=== PATIENT | male | born 1945 | race Hispanic/Latino ===

== ENCOUNTER 2017-06-13 06:08 | Day surgery (SDC) | payer BC, MEDICARE ==
[2017-06-12 09:00] VITALS: BMI 28.5
[2017-06-13 07:16] VITALS: RESP 18; O2SAT 98
[2017-06-13] MEDS ORDERED: methylPREDNISolone Depo 80 mg/ml Inj ONE (11:47)
[2017-06-13] MEDS ORDERED: Midazolam 2 MG/2 ML VIAL ONE (11:47)
[2017-06-13] MEDS ORDERED: Lidocaine 1% Inj (20ml) ONE (11:48)
[2017-06-13] MEDS ORDERED: Bupivacaine 0.5% Inj(30mL) ONE (11:48)
[2017-06-13] MEDS ORDERED: Iohexol 300 10 ML ONE (11:48)
[2017-06-13] MEDS ORDERED: methylPREDNISolone Depo 80 mg/ml Inj IM ONE (11:55)
[2017-06-13] MEDS ORDERED: Bupivacaine HCl 0.5% PF (30 ml) Inj IJ ONE (11:55)
[2017-06-13] MEDS ORDERED: Lidocaine 1% Inj (20ml) IJ ONE (11:55)
[2017-06-13] MEDS ORDERED: Lactated Ringer's 1,000 ML IV ONE (11:55)
[2017-06-13] MEDS ORDERED: Bupivacaine HCl 0.5% PF (10 ml) Inj ONE (11:56)
[2017-06-13 12:44] VITALS: BP 128/79; PULSE 63; TEMP 98
--- NOTE | 2017-06-13 16:12 | RAD ---
PROCEDURE: Lumbar epidural steroid injection HISTORY: PAIN MANAGEMENT COMPARISON: None TECHNIQUE: Standard protocol for this study/examination. FINDINGS: Total fluoroscopic time (continuous mode) utilized during the procedure: 22.1 seconds. Total exam DLP: (mGy): 6.72. Submitted images from the current procedure: 3.0 IMPRESSION: Less than 1 hr fluoroscopic time utilized during performance of the procedure.
--- NOTE | 2017-06-14 13:14 | OP ---
PROCEDURE DATE: 06/13/2017 PREOPERATIVE DIAGNOSES: Lumbar spondylosis and herniated disk. POSTOPERATIVE DIAGNOSES: Lumbar spondylosis and herniated disk. PROCEDURE: Bilateral L3, L4, L5 medial branch nerve block. SURGEON: Ramana Bowens MD CO-SURGEON: Dr. Calvo. PHYSICIAN TIME STUDY TECHNOLOGIST: AZAM Dobbnis. David Garrido stayed throughout the case from the beginning to the end. DESCRIPTION OF PROCEDURE: The patient was brought to the operating room, placed in a prone position. Back of the lumbar area thoroughly prepped and draped in the same sterile manner. Later by using the point of entry for L3, L4, L5, the area of placement of the needle has been planned and lidocaine with epinephrine has been given to this area. Spinal needles have been placed under fluoroscopy guided control at L3, L4, L5 bilaterally. Once position is confirmed, aspiration has been achieved, no CSF noted. After this, Marcaine mixed with Depo-Medrol injected into the median nerve branch area at L3, L4, L5 bilaterally and it has been done under fluoroscopic guided control. After this, needles have been removed, sterile dressings have been applied. The patient tolerated the procedure and then mobilized to recovery room in stable condition. Ramana Bowens MD
== END 2017-06-13 13:15 | disposition hospice, home (50) ==
LOC: H.OPSURG 06:08
PROVIDERS: ATTEND Neurological Surgery
DX: M51.26 Other intervertebral disc displacement, lumbar region (principal); E78.5 Hyperlipidemia, unspecified; I10 Essential (primary) hypertension; E03.9 Hypothyroidism, unspecified; M47.816 Spondylosis without myelopathy or radiculopathy, lumbar region
CPT/HCPCS: 64520; J1040; J2250; J3010; J7120

== ENCOUNTER 2017-08-08 06:26 | Inpatient (IN) | payer MEDICARE ==
[2017-06-12 09:00] VITALS: BMI 28.5
[2017-08-08] MEDS ORDERED: Propofol 10 mg/ml Inj (20 ML) ONE ×2 (07:06→07:44)
[2017-08-08] MEDS ORDERED: Succinylcholine 200 mg/10 ml Inj IV ONE (07:07)
[2017-08-08] MEDS ORDERED: Lidocaine 4% (Laryng-O-Jet) Kit MM ONE ×2 (07:07→07:44)
[2017-08-08] MEDS ORDERED: Lidocaine 1% 5ml Abboject IV ONE (07:07)
[2017-08-08] MEDS ORDERED: Midazolam 2 MG/2 ML VIAL ONE ×2 (07:07→07:44)
--- NOTE | 2017-08-08 07:09 | CP.PCM.CON ---
History of Present Illness - History of Present Illness History of Present Illness: Neurosurgery consult as per Dr. Bowens 71M complains of low back pain, failed conservative mgmt, previously had injection in 06/2017 with relief x 1.5 days, presents with continued low back pain and elected for surgery. He [id number] he used to have pain into his left leg , but not at this time. PMH: hypertension hypothyroid PSH: Rt shoulder, left knee, kidney stones, ear surgery Medical clearance on chart, reviewed Review of Systems - Review of Systems All systems: reviewed and no additional remarkable complaints except - Constitutional Additional comments: no recent illness - Musculoskeletal Musculoskeletal: As Per HPI - Integumentary Integumentary: As Per HPI - Neurological Neurological: As Per HPI - Hematologic/Lymphatic Hematologic: absent: As Per HPI, Easy Bleeding, Easy Bruising, Lymphadenopathy, Other Past Patient History - Past Medical History & Family History Past Medical History?: Yes Past Family History: Reviewed and not pertinent - Past Social History Smoking Status: Former Smoker - CARDIAC Hx Cardiac Disorders: Yes Hx Hypercholesterolemia: Yes Hx Hypertension: Yes - PULMONARY Hx Respiratory Disorders: No - NEUROLOGICAL Hx Neurological Disorder: No - HEENT Hx HEENT Problems: Yes - RENAL Hx Chronic Kidney Disease: Yes Hx Kidney Stones: Yes - ENDOCRINE/METABOLIC Hx Endocrine Disorders: Yes Hx Hypothyroidism: Yes - HEMATOLOGICAL/ONCOLOGICAL Hx Blood Disorders: No - INTEGUMENTARY Hx Dermatological Problems: No - MUSCULOSKELETAL/RHEUMATOLOGICAL Hx Musculoskeletal Disorders: Yes Hx Arthritis: Yes Hx Back Pain: Yes - GASTROINTESTINAL Hx Gastrointestinal Disorders: Yes Hx Gastritis: Yes - GENITOURINARY/GYNECOLOGICAL Hx Genitourinary Disorders: No - PSYCHIATRIC Hx Emotional Abuse: No Hx Physical Abuse: No - SURGICAL HISTORY Hx Surgeries: Yes Hx Arthroscopy: Yes (right knee) Hx Herniorrhaphy: Yes (right inguinal) Hx Tonsillectomy: Yes Other/Comment: RIGHT SHOULDER ROTATOR CUFF REPAIR. SURGERY FOR KIDNEY STONES - ANESTHESIA Hx Anesthesia: Yes Hx Anesthesia Reactions: No Hx Malignant Hyperthermia: No Meds Allergies/Adverse Reactions: Allergies Allergy/AdvReac Type Severity Reaction Status Date / Time No Known Allergies Allergy Verified 06/13/17 07:26 Physical Exam - Constitutional Appears: Well, No Acute Distress - Head Exam Head Exam: ATRAUMATIC - Neck Exam Neck exam: Positive for: Full Rom, Normal Inspection - Respiratory Exam Respiratory Exam: NORMAL BREATHING PATTERN - Cardiovascular Exam Cardiovascular Exam: REGULAR RHYTHM - GI/Abdominal Exam GI & Abdominal Exam: Normal Bowel Sounds - Back Exam Back exam: muscle spasm, tenderness, vertebral tenderness - Neurological Exam Neurological exam: Alert, Oriented x3 - Expanded Neurological Exam Expanded Sensory exam: Lower Extremity Light Touch: Normal Neuro motor strength exam: Left Lower Extremity: 5 (DF/PF/great toe ext, knee flex/ext/hip flex), Right Lower Extremity: 5 - Psychiatric Exam Psychiatric exam: Normal Affect, Normal Mood - Skin Skin Exam: Dry, Intact, Normal Color, Warm Assessment & Plan (1) Lumbar spondylosis Assessment and Plan: NPO d/w Dr. Bowens who reviewed patient imaging risks/benefits/alt explained to patient who verbalized understanding and elects for surgery plan for L4/L5 possible L5/S1 lossible L3/L4 laminectomy and posterior lateral fusion d/w Dr. Bowens, agrees with above Status: Acute
[2017-08-08] MEDS ORDERED: Rocuronium 10 mg/ml (5 ml) ONE ×2 (07:10→07:44)
[2017-08-08] MEDS ORDERED: Absorbable Gelatin Sponge Size 12-7 ONE (07:19)
[2017-08-08] MEDS ORDERED: Bupivacaine HCl 0.25% PF (30 ml) Inj ONE (07:19)
[2017-08-08] MEDS ORDERED: APROTININ/FIBRINOGEN(TISSEEL) ONE (07:20)
[2017-08-08] MEDS ORDERED: Thrombin Topical 5,000 Int Units Spray Kit ONE (07:20)
[2017-08-08] MEDS ORDERED: Bacitracin Ointment 30 GM TUBE ONE (07:20)
[2017-08-08] MEDS ORDERED: Lidocaine 2% w Epi 1:100,000 Inj IJ ONE (07:21)
[2017-08-08] MEDS ORDERED: Edrophonium Chloride 10 MG/ML IJ ONE (07:32)
[2017-08-08] MEDS ORDERED: Lactated Ringer's 1,000 ML IV ONE ×2 (08:25→09:30)
[2017-08-08] MEDS ORDERED: HEMOSTATIC MATRIX 10 ML DIS.NEEDLE TOP ONE (09:05)
[2017-08-08] MEDS ORDERED: Dexamethasone 4 mg/1 ml IVP PRN (09:53)
--- NOTE | 2017-08-08 12:28 | RAD ---
PROCEDURE: Fluoroscopy up to 1 hr. HISTORY: LUMBAR LAMINECTOMY COMPARISON: None TECHNIQUE: Standard protocol for this study/examination. FINDINGS: Total fluoroscopic time (continuous mode) utilized during the procedure: 3.3 seconds. L Total exam DLP: (mGy): 1.38 Less than 1 hr fluoroscopic time utilized during performance of the procedure. IMPRESSION: Submitted images from the current procedure: 1.0.
--- NOTE | 2017-08-08 12:39 | CP.PCM.HP ---
<FallBeckie - Last Filed: 08/08/17 12:32> History of Present Illness - History of Present Illness History of Present Illness: 71 yo male presents to same day surgery for scheduled lumbar laminectomy L4-L5 s /p chronic low back pain secondary to lumbar disc herniation. Patient reports he failed conservative treatment. PMH includes HTN, hypothyroidism, HLD, gastritis, anxiety, depression, and Bilateral hearing impairment. Denies chest pain, SOB, weakness or dizziness. PMD: Dr. Cole Specialist: Dr. Bowens- neurosurgery PMHx: HTN, hypothyroidism, HLD, gastritis, anxiety, depression, and Bilateral hearing impairment SurHx: hernia repair, tonsillectomy, left knee surgery, kidney stone removal- cystoscopy FMHx: non-contributory SocHx: Denies tobacco, EToH, or drugs Medications: see medicine reconciliation Allergies: NKDA Present on Admission - Present on Admission Any Indicators Present on Admission: No History of DVT/PE: No History of Uncontrolled Diabetes: No Urinary Catheter: No Decubitus Ulcer Present: No History Surgical Site Infection Following: None Review of Systems - Constitutional Constitutional: absent: Chills, Fever - EENT Eyes: absent: Blurred Vision, Change in Vision Ears: absent: Ear Discharge, Ear Pain, Dizziness Nose/Mouth/Throat: absent: Nasal Congestion, Nasal Discharge - Cardiovascular Cardiovascular: absent: Chest Pain, Dyspnea, Syncope - Respiratory Respiratory: absent: Cough, Hemoptysis - Gastrointestinal Gastrointestinal: absent: Abdominal Pain, Nausea, Vomiting - Genitourinary Genitourinary: absent: Difficulty Urinating, Dysuria - Musculoskeletal Musculoskeletal: Back Pain (low back pain). absent: Neck Pain - Integumentary Integumentary: absent: Bleeding Lesions - Neurological Neurological: absent: Confusion, Weakness - Psychiatric Psychiatric: absent: Anxiety - Endocrine Endocrine: absent: Polydipsia, Polyuria - Hematologic/Lymphatic Hematologic: absent: Easy Bleeding, Easy Bruising Past Patient History - Past Medical History & Family History Past Medical History?: Yes - Past Social History Smoking Status: Former Smoker - CARDIAC Hx Cardiac Disorders: Yes Hx Hypercholesterolemia: Yes Hx Hypertension: Yes - PULMONARY Hx Respiratory Disorders: No - NEUROLOGICAL Hx Neurological Disorder: No - HEENT Hx HEENT Problems: Yes - RENAL Hx Chronic Kidney Disease: Yes Hx Kidney Stones: Yes - ENDOCRINE/METABOLIC Hx Endocrine Disorders: Yes Hx Hypothyroidism: Yes - HEMATOLOGICAL/ONCOLOGICAL Hx Blood Disorders: No Hx Blood Transfusions: No - INTEGUMENTARY Hx Dermatological Problems: No - MUSCULOSKELETAL/RHEUMATOLOGICAL Hx Musculoskeletal Disorders: Yes Hx Arthritis: Yes Hx Back Pain: Yes - GASTROINTESTINAL Hx Gastrointestinal Disorders: Yes Hx Gastritis: Yes - GENITOURINARY/GYNECOLOGICAL Hx Genitourinary Disorders: No - PSYCHIATRIC Hx Emotional Abuse: No Hx Physical Abuse: No - SURGICAL HISTORY Hx Surgeries: Yes Hx Arthroscopy: Yes (right knee) Hx Herniorrhaphy: Yes (right inguinal) Hx Tonsillectomy: Yes Other/Comment: RIGHT SHOULDER ROTATOR CUFF REPAIR. SURGERY FOR KIDNEY STONES. BOTH EARS. EPIDURAL - ANESTHESIA Hx Anesthesia: Yes Hx Anesthesia Reactions: No Hx Malignant Hyperthermia: No Meds Allergies/Adverse Reactions: Allergies Allergy/AdvReac Type Severity Reaction Status Date / Time No Known Allergies Allergy Verified 08/08/17 07:36 Physical Exam - Constitutional Appears: No Acute Distress - Head Exam Head Exam: ATRAUMATIC, NORMOCEPHALIC - Eye Exam Eye Exam: EOMI Pupil Exam: PERRL - ENT Exam ENT Exam: Mucous Membranes Moist Additional comments: bilateral hearing aids - Neck Exam Neck exam: Positive for: Full Rom - Respiratory Exam Respiratory Exam: NORMAL BREATHING PATTERN - Cardiovascular Exam Cardiovascular Exam: REGULAR RHYTHM, +S1, +S2 - GI/Abdominal Exam GI & Abdominal Exam: Normal Bowel Sounds, Soft - Extremities Exam Extremities exam: Positive for: full ROM. Negative for: pedal edema - Neurological Exam Neurological exam: Alert, CN II-XII Intact, Oriented x3 - Psychiatric Exam Psychiatric exam: Normal Affect, Normal Mood - Skin Skin Exam: Dry, Warm Results - Vital Signs Recent Vital Signs: Last Vital Signs Temp 97.1 F L 08/08/17 10:05 Pulse 56 L 08/08/17 12:05 Resp 18 08/08/17 12:05 BP 116/66 08/08/17 12:05 Pulse Ox 98 08/08/17 12:05 - Labs Labs: Laboratory Results - last 24 hr 08/08/17 08/08/17 07:00 09:30 Blood Type O NEGATIVE Blood Type Confirm O NEGATIVE Antibody Screen Negative BBK History Checked No verified bt Assessment & Plan - Assessment and Plan (Free Text) Assessment: 71 yo male presents to same day surgery for scheduled lumbar laminectomy L4-L5 s /p chronic low back pain secondary to lumbar disc herniation. Patient reports he failed conservative treatment. Patient is medically stable for surgery. -admit to med/surg after surgery -heart healthy diet after surgery -pain management -resume home medications -PT/OT - Date & Time Date: 08/08/17 Time: 10:00 <Amos Cole - Last Filed: 08/13/17 11:31> Results - Vital Signs Recent Vital Signs: Last Vital Signs Temp 97.6 F 08/13/17 08:36 Pulse 88 08/13/17 09:57 Resp 18 08/13/17 08:36 BP 131/68 08/13/17 09:57 Pulse Ox 96 08/13/17 08:36 - Labs Result Diagrams: 08/13/17 09:15 08/13/17 09:15 Labs: Laboratory Results - last 24 hr 08/13/17 08/13/17 09:15 09:15 WBC 13.6 H RBC 5.24 Hgb 14.2 Hct 42.5 MCV 81.2 MCH 27.1 MCHC 33.4 RDW 16.2 H Plt Count 227 MPV 8.6 Neut % (Auto) 77.4 H Lymph % (Auto) 17.[address] [place] % (Auto) 5.3 Eos % (Auto) 0.0 Baso % (Auto) 0.1 Neut # (Auto) 10.6 H Lymph # (Auto) 2.3 [place] # (Auto) 0.7 Eos # (Auto) 0.0 Baso # (Auto) 0.0 Sodium 140 Potassium 3.2 L Chloride 100 Carbon Dioxide 29 Anion Gap 14 BUN 22 H Creatinine 0.9 Est GFR ( Amer) > 60 Est GFR (Non-Af Amer) > 60 Random Glucose 163 H Calcium 8.7 Total Bilirubin 0.7 AST 23 ALT 41 Alkaline Phosphatase 48 Total Protein 6.5 Albumin 3.5 Globulin 3.0 Albumin/Globulin Ratio 1.2 Assessment & Plan - Assessment and Plan (Free Text) Plan: I was present during evaluation and discussed with Dr Fall re plans of care and mgt. Amos Cole M.D.
[2017-08-08] MEDS: Dexamethasone 4 mg/1 ml IV SCH ×3 (15:33→23:42)
[2017-08-08] MEDS ORDERED: Dexamethasone 4 MG in Sodium Chloride 0.9% 50 ML IVPB SCH (16:00)
[2017-08-08] MEDS: ceFAZolin IV 2 gm in Dextrose 2 GM/50 ML BAG IVPB SCH (16:11)
[2017-08-08] MEDS: Sodium Chloride 0.9% 1,000 ML IV SCH ×2 (16:15→20:27)
[2017-08-08] MEDS: Oxycodone/Acetaminophen 5/325 mg Tab PO PRN ×2 (16:19→21:44)
--- NOTE | 2017-08-08 23:25 | OP ---
PROCEDURE DATE: 08/08/2017 PREOPERATIVE DIAGNOSIS: Lumbar spondylosis. POSTOPERATIVE DIAGNOSIS: Lumbar spondylosis. PROCEDURE: L4-L5 lumbar laminectomy, L4-L5 posterolateral fusion, fluoroscopy has been used, microscope has been used. SURGEON: Ramana Bowens MD CHEF PASSENGER VESSEL: Aurora Barr PA-C DESCRIPTION OF PROCEDURE: The patient was brought to the operating room, anesthetized with general endotracheal anesthesia, placed in a prone position on a Onel table. Care was taken to protect all the pressure points. Back of the lumbar area was thoroughly prepped and draped in a sterile manner, after marking the skin incision for lumbar laminectomy. After prepping and draping the area, skin has been incised. Bleeding skins have been controlled with bipolar motorboat mechanic. Using a Bovie motorboat mechanic, paraspinal muscles have been detached, attachments of the spinous process and lamina of L4-L5. Identification of levels has been done through fluoroscopy. Deep retractors have been applied. By using a Leksell rongeur and magnification, the spinous process of L4-L5 have been removed. By using a high-speed drill, the lamina on medial part of the facets have been drilled, there is significant decrease in the interlaminar distance with medial facet hypertrophy. All these middle part of the facets have been drilled. By using a fine Kerrison punch, thinned out the lamina, medial part of facets, buckled and thickened ligamentum flavum has bee removed further decompressing this area. Foraminotomy was performed. After that, lateral aspect of the facet joints have been decorticated. The bone that has been removed, was crushed and then placed as a bone graft on the lateral aspect of the facet joint, transverse process of L4-L5. After that, hemostasis was best achieved. Onel drain was placed in the wound, brought out through a separate stab neck skin incision. Muscles and fascia closed with 1 Vicryl, subcutaneous tissue with 3 Vicryl, and skin has been closed with intradermal 3 Vicryl stitches. The patient tolerated the procedure. Ramana Bowens MD
[2017-08-09] MEDS: ceFAZolin IV 2 gm in Dextrose 2 GM/50 ML BAG IVPB SCH ×3 (01:00→21:39)
[2017-08-09] MEDS: Dexamethasone 4 mg/1 ml IV SCH ×3 (04:49→21:00)
[2017-08-09] MEDS: Levothyroxine 25 MCG TAB PO SCH (06:16)
[2017-08-09 06:57] LABS: HEMOGLOBIN 13.3 g/dL (12.0-18.0); MEAN CELL VOLUME 81.1 fl (80.0-94.0); MEAN CORPUSCULAR HEMOGLOBIN 26.9 pg (27.0-31.0); MEAN CORPUSCULAR HGB CONC 33.2 g/dL (33.0-37.0); RBC 4.95 Mil/uL (4.40-5.90); RED CELL DISTRIBUTION WIDTH 15.6 % (11.5-14.5); WHITE BLOOD COUNT 13.2 K/uL (4.8-10.8)
[2017-08-09 07:01] LABS: BLOOD UREA NITROGEN 15 mg/dl (9-20); CALCIUM 8.6 mg/dL (8.4-10.2); GFR AFRICAN-AMERICAN > 60; GFR NON-AFRICAN AMERICAN > 60
[2017-08-09] MEDS ORDERED: VORTIOXETINE HYDROBROMIDE 20 MG PO SCH (09:00)
[2017-08-09] MEDS: Enoxaparin 40 mg Syringe SC SCH (09:05)
--- NOTE | 2017-08-09 11:31 | CP.PCM.PN ---
<Joni Hermosillo - Last Filed: 08/09/17 11:35> Subjective - Date & Time of Evaluation Date of Evaluation: 08/09/17 Time of Evaluation: 11:28 - Subjective Subjective: 71 YO M doing well on POD#1 laminectomy. Pain is well controlled with medication. He has been putting out 60ml overnight via drain. Denies any fever, chills, nasuea or vomiting. Has been ambulating and is currently sitting in the chair watching TV in no acute distress. Objective - Vital Signs/Intake and Output Vital Signs (last 24 hours): Temp Pulse Resp BP Pulse Ox 98.4 F 74 20 144/80 96 08/09/17 07:44 08/09/17 09:06 08/09/17 07:44 08/09/17 09:06 08/09/17 07:44 Intake and Output: 08/09/17 08/09/17 06:59 18:59 Intake Total 1350 Output Total 1260 Balance 90 - Medications Medications: Current Medications Amlodipine Besylate (Norvasc) 10 mg PO DAILY [facility] Last Admin: 08/09/17 09:06 Dose: 10 mg Atorvastatin Calcium (Lipitor) 20 mg PO DAILY [facility] Last Admin: 08/09/17 09:05 Dose: 20 mg Carvedilol (Coreg) 12.5 mg PO BID [facility] Last Admin: 08/09/17 09:04 Dose: 12.5 mg Cyclobenzaprine HCl (Flexeril) 10 mg PO TID PRN PRN Reason: Muscle spasm Dexamethasone (Decadron Inj) 4 mg IV Q6H [facility] Last Admin: 08/09/17 04:49 Dose: 4 mg Docusate Sodium (Colace) 100 mg PO BID [facility] Last Admin: 08/09/17 09:03 Dose: 100 mg Doxazosin Mesylate (Cardura) 4 mg PO BID [facility] Last Admin: 08/09/17 09:03 Dose: 4 mg Enoxaparin Sodium (Lovenox) 40 mg SC DAILY [facility] PRN Reason: Protocol Last Admin: 08/09/17 09:05 Dose: 40 mg Ergocalciferol (Drisdol 50,000 Intl Units Cap) 1 cap PO QWK [facility] Home Med (Vortioxetine Hydrobromide [Trintellix]) 20 mg PO DAILY [facility] Hydrochlorothiazide (Microzide) 12.5 mg PO DAILY [facility] Last Admin: 08/09/17 09:06 Dose: 12.5 mg Sodium Chloride (Sodium Chloride 0.9%) 1,000 mls @ 100 mls/hr IV .Q10H [facility] Last Admin: 08/08/17 20:27 Dose: 100 mls/hr Levothyroxine Sodium (Synthroid) 25 mcg PO DAILY@0630 [facility] Last Admin: 08/09/17 06:16 Dose: 25 mcg Morphine Sulfate (Morphine) 4 mg IVP Q4 PRN PRN Reason: Pain, severe (8-10) Ondansetron HCl (Zofran Inj) 4 mg IVP Q6 PRN PRN Reason: Nausea/Vomiting Oxycodone/Acetaminophen (Percocet 5/325 Mg Tab) 2 tab PO Q4 PRN PRN Reason: Pain, moderate (4-7) Stop: 08/11/17 10:08 Last Admin: 08/08/17 21:44 Dose: 2 tab Valsartan (Diovan) 320 mg PO DAILY [facility] Last Admin: 08/09/17 09:05 Dose: 320 mg - Labs Labs: 08/09/17 06:05 08/09/17 06:05 - Constitutional Appears: No Acute Distress - Head Exam Head Exam: NORMAL INSPECTION - Respiratory Exam Respiratory Exam: Clear to Ausculation Bilateral, NORMAL BREATHING PATTERN. absent: Rhonchi, Wheezes - Cardiovascular Exam Cardiovascular Exam: REGULAR RHYTHM, +S1, +S2 - GI/Abdominal Exam GI & Abdominal Exam: Soft, Normal Bowel Sounds. absent: Tenderness - Extremities Exam Extremities Exam: absent: Calf Tenderness - Back Exam Additional comments: wound C/D/I . Serosanguinous fluid noted in maddi drain. - Neurological Exam Neurological Exam: Alert, Awake, CN II-XII Intact, Oriented x3 - Skin Skin Exam: Dry, Normal Color, Warm Assessment and Plan - Assessment and Plan (Free Text) Assessment: 71 yo male presents to same day surgery for scheduled lumbar laminectomy L4-L5 s /p chronic low back pain secondary to lumbar disc herniation. Patient reports he failed conservative treatment. Patient is medically stable for surgery. - Pain well controlled with medication - resume home medications - PT/OT - Overnight maddi drain put out 60 ml of serosanguinous fluid. - If it puts out less then 50 tomorrow discharge patient. <Amos Cole Shon - Last Filed: 08/13/17 11:33> Objective - Vital Signs/Intake and Output Vital Signs (last 24 hours): Temp Pulse Resp BP Pulse Ox 97.6 F 88 18 131/68 96 08/13/17 08:36 18 09:57 08/13/17 08:36 08/13/17 09:57 08/13/17 08:36 Intake and Output: 08/13/17 08/13/17 06:59 18:59 Intake Total 65 65 Output Total 20 30 Balance 45 35 - Medications Medications: Current Medications Amlodipine Besylate (Norvasc) 10 mg PO DAILY [facility] Last Admin: 08/13/17 09:57 Dose: 10 mg Atorvastatin Calcium (Lipitor) 20 mg PO DAILY [facility] Last Admin: 08/13/17 09:57 Dose: 20 mg Carvedilol (Coreg) 12.5 mg PO BID [facility] Last Admin: 08/13/17 09:56 Dose: 12.5 mg Cyclobenzaprine HCl (Flexeril) 10 mg PO TID PRN PRN Reason: Muscle spasm Dexamethasone (Decadron) 2 mg PO Q12 [facility] Last Admin: 08/13/17 11:17 Dose: 2 mg Docusate Sodium (Colace) 100 mg PO BID [facility] Last Admin: 08/13/17 09:55 Dose: 100 mg Doxazosin Mesylate (Cardura) 4 mg PO BID [facility] Last Admin: 08/13/17 09:55 Dose: 4 mg Ergocalciferol (Drisdol 50,000 Intl Units Cap) 1 cap PO QWK [facility] Last Admin: 08/12/17 08:37 Dose: 1 cap Home Med (Vortioxetine Hydrobromide [Trintellix]) 20 mg PO DAILY [facility] Hydrochlorothiazide (Microzide) 12.5 mg PO DAILY [facility] Last Admin: 08/13/17 09:57 Dose: 12.5 mg Cefazolin Sodium/Dextrose (Ancef Iv 2 Gm Duplex) 2 gm in 50 mls @ 50 mls/hr IVPB Q8H [facility] PRN Reason: Protocol Last Admin: 08/13/17 05:59 Dose: 50 mls/hr Lactulose (Enulose) 20 gm PO DAILY PRN PRN Reason: Constipation Last Admin: 08/10/17 15:01 Dose: 20 gm Levothyroxine Sodium (Synthroid) 25 mcg PO DAILY@0630 [facility] Last Admin: 08/13/17 06:00 Dose: 25 mcg Morphine Sulfate (Morphine) 4 mg IVP Q4 PRN PRN Reason: Pain, severe (8-10) Ondansetron HCl (Zofran Inj) 4 mg IVP Q6 PRN PRN Reason: Nausea/Vomiting Valsartan (Diovan) 320 mg PO DAILY [facility] Last Admin: 08/13/17 09:57 Dose: 320 mg - Labs Labs: 08/13/17 09:15 08/13/17 09:15 Assessment and Plan - Assessment and Plan (Free Text) Plan: I ws present during evaluation and discussed with DR Hermosillo re plans of care and mgt Amos Cole M.D.
[2017-08-09] MEDS: Oxycodone/Acetaminophen 5/325 mg Tab PO PRN (12:09)
--- NOTE | 2017-08-09 12:51 | CP.PCM.PN ---
Subjective - Date & Time of Evaluation Date of Evaluation: 08/09/17 Time of Evaluation: 08:00 - Subjective Subjective: Patient states pain was severe, but now that he is taking pain medication it is much better. Denies numbness/tingling, CP/SOB/dizziness. Objective - Vital Signs/Intake and Output Vital Signs (last 24 hours): Temp Pulse Resp BP Pulse Ox 98.4 F 74 20 144/80 96 08/09/17 07:44 08/09/17 09:06 08/09/17 07:44 08/09/17 09:06 08/09/17 07:44 Intake and Output: 08/09/17 08/09/17 06:59 18:59 Intake Total 1350 Output Total 1260 Balance 90 - Medications Medications: Current Medications Amlodipine Besylate (Norvasc) 10 mg PO DAILY [facility] Last Admin: 08/09/17 09:06 Dose: 10 mg Atorvastatin Calcium (Lipitor) 20 mg PO DAILY [facility] Last Admin: 08/09/17 09:05 Dose: 20 mg Carvedilol (Coreg) 12.5 mg PO BID [facility] Last Admin: 08/09/17 09:04 Dose: 12.5 mg Cyclobenzaprine HCl (Flexeril) 10 mg PO TID PRN PRN Reason: Muscle spasm Dexamethasone (Decadron Inj) 4 mg IV Q6H [facility] Last Admin: 08/09/17 12:00 Dose: 4 mg Docusate Sodium (Colace) 100 mg PO BID [facility] Last Admin: 08/09/17 09:03 Dose: 100 mg Doxazosin Mesylate (Cardura) 4 mg PO BID [facility] Last Admin: 08/09/17 09:03 Dose: 4 mg Enoxaparin Sodium (Lovenox) 40 mg SC DAILY [facility] PRN Reason: Protocol Last Admin: 08/09/17 09:05 Dose: 40 mg Ergocalciferol (Drisdol 50,000 Intl Units Cap) 1 cap PO QWK [facility] Home Med (Vortioxetine Hydrobromide [Trintellix]) 20 mg PO DAILY [facility] Hydrochlorothiazide (Microzide) 12.5 mg PO DAILY [facility] Last Admin: 08/09/17 09:06 Dose: 12.5 mg Sodium Chloride (Sodium Chloride 0.9%) 1,000 mls @ 100 mls/hr IV .Q10H [facility] Last Admin: 08/08/17 20:27 Dose: 100 mls/hr Levothyroxine Sodium (Synthroid) 25 mcg PO DAILY@0630 [facility] Last Admin: 08/09/17 06:16 Dose: 25 mcg Morphine Sulfate (Morphine) 4 mg IVP Q4 PRN PRN Reason: Pain, severe (8-10) Ondansetron HCl (Zofran Inj) 4 mg IVP Q6 PRN PRN Reason: Nausea/Vomiting Oxycodone/Acetaminophen (Percocet 5/325 Mg Tab) 2 tab PO Q4 PRN PRN Reason: Pain, moderate (4-7) Stop: 08/11/17 10:08 Last Admin: 08/09/17 12:09 Dose: 2 tab Valsartan (Diovan) 320 mg PO DAILY [facility] Last Admin: 08/09/17 09:05 Dose: 320 mg - Labs Labs: 08/09/17 06:05 08/09/17 06:05 - Back Exam Additional comments: CARMELO 60cc last 12 hrs, left intact +ROM ankles/toes/knees 5/5 sensation intact L2-S1 Assessment and Plan (1) Lumbar spondylosis Assessment & Plan: POD#1 s/p laminectomy cont ancef untiil drain d/c monitor outpt, to remain in house at this time PT pain meds encourage OOB d/w Dr. Bowens, agrees with above Status: Acute
[2017-08-10] MEDS: ceFAZolin IV 2 gm in Dextrose 2 GM/50 ML BAG IVPB SCH ×3 (05:17→21:42)
[2017-08-10 06:51] LABS: HEMOGLOBIN 12.9 g/dL (12.0-18.0); MEAN CELL VOLUME 81.2 fl (80.0-94.0); MEAN CORPUSCULAR HEMOGLOBIN 26.9 pg (27.0-31.0); MEAN CORPUSCULAR HGB CONC 33.1 g/dL (33.0-37.0); RBC 4.81 Mil/uL (4.40-5.90); RED CELL DISTRIBUTION WIDTH 16.1 % (11.5-14.5); WHITE BLOOD COUNT 18.5 K/uL (4.8-10.8)
[2017-08-10] MEDS: Levothyroxine 25 MCG TAB PO SCH (06:57)
[2017-08-10] MEDS: Dexamethasone 4 mg/1 ml IV SCH ×2 (09:06→21:41)
[2017-08-10] MEDS: Enoxaparin 40 mg Syringe SC SCH (09:07)
--- NOTE | 2017-08-10 18:32 | CP.PCM.PN ---
<Joni Hermosillo - Last Filed: 08/11/17 10:55> Subjective - Date & Time of Evaluation Date of Evaluation: 08/10/17 Time of Evaluation: 10:43 - Subjective Subjective: 71 YO M doing well on POD#3 laminectomy. Pain is well controlled with medication. He has atill been putting out 130ml in the last 24 hours via drain. Denies any fever, chills, nasuea or vomiting. Has been ambulating and is currently sitting in the chair watching TV in no acute distress. Objective - Vital Signs/Intake and Output Vital Signs (last 24 hours): Temp Pulse Resp BP Pulse Ox 97.8 F 79 20 124/78 95 08/10/17 16:36 08/10/17 16:36 08/10/17 16:36 08/10/17 16:36 08/10/17 16:36 Intake and Output: 08/10/17 08/10/17 06:59 18:59 Intake Total 200 Output Total 50 40 Balance 150 -40 - Medications Medications: Current Medications Amlodipine Besylate (Norvasc) 10 mg PO DAILY [facility] Last Admin: 08/10/17 09:08 Dose: 10 mg Atorvastatin Calcium (Lipitor) 20 mg PO DAILY [facility] Last Admin: 08/10/17 09:07 Dose: 20 mg Carvedilol (Coreg) 12.5 mg PO BID [facility] Last Admin: 08/10/17 16:26 Dose: 12.5 mg Cyclobenzaprine HCl (Flexeril) 10 mg PO TID PRN PRN Reason: Muscle spasm Dexamethasone (Decadron Inj) 4 mg IV Q12 [facility] Last Admin: 08/10/17 09:06 Dose: 4 mg Docusate Sodium (Colace) 100 mg PO BID [facility] Last Admin: 08/10/17 17:49 Dose: 100 mg Doxazosin Mesylate (Cardura) 4 mg PO BID [facility] Last Admin: 08/10/17 16:26 Dose: 4 mg Enoxaparin Sodium (Lovenox) 40 mg SC DAILY [facility] PRN Reason: Protocol Last Admin: 08/10/17 09:07 Dose: 40 mg Ergocalciferol (Drisdol 50,000 Intl Units Cap) 1 cap PO QWK [facility] Home Med (Vortioxetine Hydrobromide [Trintellix]) 20 mg PO DAILY [facility] Hydrochlorothiazide (Microzide) 12.5 mg PO DAILY [facility] Last Admin: 08/10/17 09:08 Dose: 12.5 mg Sodium Chloride (Sodium Chloride 0.9%) 1,000 mls @ 100 mls/hr IV .Q10H [facility] Last Admin: 08/08/17 20:27 Dose: 100 mls/hr Cefazolin Sodium/Dextrose (Ancef Iv 2 Gm Duplex) 2 gm in 50 mls @ 50 mls/hr IVPB Q8H [facility] PRN Reason: Protocol Last Admin: 08/10/17 13:34 Dose: 50 mls/hr Lactulose (Enulose) 20 gm PO DAILY PRN PRN Reason: Constipation Last Admin: 08/10/17 15:01 Dose: 20 gm Levothyroxine Sodium (Synthroid) 25 mcg PO DAILY@0630 [facility] Last Admin: 08/10/17 06:57 Dose: 25 mcg Morphine Sulfate (Morphine) 4 mg IVP Q4 PRN PRN Reason: Pain, severe (8-10) Ondansetron HCl (Zofran Inj) 4 mg IVP Q6 PRN PRN Reason: Nausea/Vomiting Oxycodone/Acetaminophen (Percocet 5/325 Mg Tab) 2 tab PO Q4 PRN PRN Reason: Pain, moderate (4-7) Stop: 08/11/17 10:08 Last Admin: 08/09/17 12:09 Dose: 2 tab Valsartan (Diovan) 320 mg PO DAILY [facility] Last Admin: 08/10/17 09:06 Dose: 320 mg - Labs Labs: 08/10/17 06:05 08/09/17 06:05 - Constitutional Appears: No Acute Distress - Head Exam Head Exam: NORMAL INSPECTION - Respiratory Exam Respiratory Exam: Clear to Ausculation Bilateral, NORMAL BREATHING PATTERN. absent: Rales, Rhonchi, Wheezes - GI/Abdominal Exam GI & Abdominal Exam: Soft, Normal Bowel Sounds. absent: Tenderness - Back Exam Additional comments: Wound C/D/I. Serosanguinous fluid noted in Mukul drain. - Neurological Exam Neurological Exam: Alert, Awake, CN II-XII Intact, Oriented x3 Assessment and Plan - Assessment and Plan (Free Text) Assessment: 71 yo male POD 2 s/p lumbar laminectomy L4-L5 s/p chronic low back pain secondary to lumbar disc herniation. Patient reports he failed conservative treatment. - Pain well controlled with medication - PT/OT - Continue monitoring output into drain. <Amos Cole - Last Filed: 08/13/17 11:32> Objective - Vital Signs/Intake and Output Vital Signs (last 24 hours): Temp Pulse Resp BP Pulse Ox 97.6 F 88 18 131/68 96 08/13/17 08:36 08/13/17 09:57 08/13/17 08:36 08/13/17 09:57 08/13/17 08:36 Intake and Output: 08/13/17 08/13/17 06:59 18:59 Intake Total 65 65 Output Total 20 30 Balance 45 35 - Medications Medications: Current Medications Amlodipine Besylate (Norvasc) 10 mg PO DAILY [facility] Last Admin: 08/13/17 09:57 Dose: 10 mg Atorvastatin Calcium (Lipitor) 20 mg PO DAILY [facility] Last Admin: 08/13/17 09:57 Dose: 20 mg Carvedilol (Coreg) 12.5 mg PO BID [facility] Last Admin: 08/13/17 09:56 Dose: 12.5 mg Cyclobenzaprine HCl (Flexeril) 10 mg PO TID PRN PRN Reason: Muscle spasm Dexamethasone (Decadron) 2 mg PO Q12 [facility] Last Admin: 08/13/17 11:17 Dose: 2 mg Docusate Sodium (Colace) 100 mg PO BID [facility] Last Admin: 08/13/17 09:55 Dose: 100 mg Doxazosin Mesylate (Cardura) 4 mg PO BID [facility] Last Admin: 08/13/17 09:55 Dose: 4 mg Ergocalciferol (Drisdol 50,000 Intl Units Cap) 1 cap PO QWK [facility] Last Admin: 08/12/17 08:37 Dose: 1 cap Home Med (Vortioxetine Hydrobromide [Trintellix]) 20 mg PO DAILY [facility] Hydrochlorothiazide (Microzide) 12.5 mg PO DAILY [facility] Last Admin: 08/13/17 09:57 Dose: 12.5 mg Cefazolin Sodium/Dextrose (Ancef Iv 2 Gm Duplex) 2 gm in 50 mls @ 50 mls/hr IVPB Q8H [facility] PRN Reason: Protocol Last Admin: 08/13/17 05:59 Dose: 50 mls/hr Lactulose (Enulose) 20 gm PO DAILY PRN PRN Reason: Constipation Last Admin: 08/10/17 15:01 Dose: 20 gm Levothyroxine Sodium (Synthroid) 25 mcg PO DAILY@0630 [facility] Last Admin: 08/13/17 06:00 Dose: 25 mcg Morphine Sulfate (Morphine) 4 mg IVP Q4 PRN PRN Reason: Pain, severe (8-10) Ondansetron HCl (Zofran Inj) 4 mg IVP Q6 PRN PRN Reason: Nausea/Vomiting Valsartan (Diovan) 320 mg PO DAILY [facility] Last Admin: 08/13/17 09:57 Dose: 320 mg - Labs Labs: 08/13/17 09:15 08/13/17 09:15 Assessment and Plan - Assessment and Plan (Free Text) Plan: I was present during evaluation and discussed with Dr Hermosillo re plans of care and mgt. Amos Cole M.D.
[2017-08-10] MEDS: Sodium Chloride 0.9% 1,000 ML IV SCH (22:15)
[2017-08-11] MEDS: Levothyroxine 25 MCG TAB PO SCH (06:09)
[2017-08-11] MEDS: ceFAZolin IV 2 gm in Dextrose 2 GM/50 ML BAG IVPB SCH ×3 (06:09→21:22)
[2017-08-11] MEDS: Enoxaparin 40 mg Syringe SC SCH (09:11)
[2017-08-11] MEDS: Ergocalciferol 50,000 Intl Units Cap PO SCH (09:11)
[2017-08-11] MEDS: Dexamethasone 4 mg/1 ml IV SCH ×2 (09:12→21:23)
[2017-08-12] MEDS: Sodium Chloride 0.9% 1,000 ML IV SCH (04:15)
[2017-08-12] MEDS: ceFAZolin IV 2 gm in Dextrose 2 GM/50 ML BAG IVPB SCH ×3 (06:15→21:26)
[2017-08-12] MEDS: Levothyroxine 25 MCG TAB PO SCH (06:32)
[2017-08-12 08:23] VITALS: O2SAT 96
[2017-08-12] MEDS: Ergocalciferol 50,000 Intl Units Cap PO SCH (08:37)
[2017-08-12] MEDS: Enoxaparin 40 mg Syringe SC SCH (08:38)
[2017-08-12] MEDS: Dexamethasone 4 mg/1 ml IV SCH ×2 (08:38→21:26)
[2017-08-13 00:38] VITALS: RESP 18
[2017-08-13] MEDS: ceFAZolin IV 2 gm in Dextrose 2 GM/50 ML BAG IVPB SCH (05:59)
[2017-08-13] MEDS: Levothyroxine 25 MCG TAB PO SCH (06:00)
[2017-08-13 08:37] VITALS: PULSE 88; TEMP 97.6
[2017-08-13 09:38] LABS: BASO % 0.1 % (0.0-2.0); HEMOGLOBIN 14.2 g/dL (12.0-18.0); LYMPH # 2.3 K/uL (1.0-4.3); LYMPH % 17.2 % (20.0-40.0); MEAN CELL VOLUME 81.2 fl (80.0-94.0); MEAN CORPUSCULAR HEMOGLOBIN 27.1 pg (27.0-31.0); MEAN CORPUSCULAR HGB CONC 33.4 g/dL (33.0-37.0); MEAN PLATELET VOLUME 8.6 fl (7.2-11.7); MONO # 0.7 K/uL (0.0-0.8); MONO % 5.3 % (0.0-10.0); NEUT # 10.6 K/uL (1.8-7.0); NEUT % 77.4 % (50.0-75.0); NRBC % 0.1 % (0.0-0.0); RBC 5.24 Mil/uL (4.40-5.90); RED CELL DISTRIBUTION WIDTH 16.2 % (11.5-14.5); WHITE BLOOD COUNT 13.6 K/uL (4.8-10.8)
[2017-08-13 09:55] LABS: ALB/GLOB RATIO 1.2 (1.0-2.1); ALBUMIN 3.5 g/dL (3.5-5.0); ALT/SGPT 41 U/L (21-72); AST/SGOT 23 U/L (17-59); BLOOD UREA NITROGEN 22 mg/dl (9-20); CALCIUM 8.7 mg/dL (8.4-10.2); GFR AFRICAN-AMERICAN > 60; GFR NON-AFRICAN AMERICAN > 60
[2017-08-13 09:58] VITALS: BP 131/68
--- NOTE | 2017-08-13 11:35 | CP.PCM.PN ---
Subjective - Date & Time of Evaluation Date of Evaluation: 08/11/17 Time of Evaluation: 17:00 - Subjective Subjective: Patient had more than 100 cc collected thru the drain in the past 24 hours. Has no fever Has no headaches, Has minimal pain on the op site. Objective - Vital Signs/Intake and Output Vital Signs (last 24 hours): Temp Pulse Resp BP Pulse Ox 97.6 F 88 18 131/68 96 08/13/17 08:36 08/13/17 09:57 08/13/17 08:36 08/13/17 09:57 08/13/17 08:36 Intake and Output: 08/13/17 08/13/17 06:59 18:59 Intake Total 65 65 Output Total 20 30 Balance 45 35 - Medications Medications: Current Medications Amlodipine Besylate (Norvasc) 10 mg PO DAILY [facility] Last Admin: 08/13/17 09:57 Dose: 10 mg Atorvastatin Calcium (Lipitor) 20 mg PO DAILY [facility] Last Admin: 08/13/17 09:57 Dose: 20 mg Carvedilol (Coreg) 12.5 mg PO BID [facility] Last Admin: 08/13/17 09:56 Dose: 12.5 mg Cyclobenzaprine HCl (Flexeril) 10 mg PO TID PRN PRN Reason: Muscle spasm Dexamethasone (Decadron) 2 mg PO Q12 [facility] Last Admin: 08/13/17 11:17 Dose: 2 mg Docusate Sodium (Colace) 100 mg PO BID [facility] Last Admin: 08/13/17 09:55 Dose: 100 mg Doxazosin Mesylate (Cardura) 4 mg PO BID [facility] Last Admin: 08/13/17 09:55 Dose: 4 mg Ergocalciferol (Drisdol 50,000 Intl Units Cap) 1 cap PO QWK [facility] Last Admin: 08/12/17 08:37 Dose: 1 cap Home Med (Vortioxetine Hydrobromide [Trintellix]) 20 mg PO DAILY [facility] Hydrochlorothiazide (Microzide) 12.5 mg PO DAILY [facility] Last Admin: 08/13/17 09:57 Dose: 12.5 mg Cefazolin Sodium/Dextrose (Ancef Iv 2 Gm Duplex) 2 gm in 50 mls @ 50 mls/hr IVPB Q8H [facility] PRN Reason: Protocol Last Admin: 08/13/17 05:59 Dose: 50 mls/hr Lactulose (Enulose) 20 gm PO DAILY PRN PRN Reason: Constipation Last Admin: 08/10/17 15:01 Dose: 20 gm Levothyroxine Sodium (Synthroid) 25 mcg PO DAILY@0630 [facility] Last Admin: 08/13/17 06:00 Dose: 25 mcg Morphine Sulfate (Morphine) 4 mg IVP Q4 PRN PRN Reason: Pain, severe (8-10) Ondansetron HCl (Zofran Inj) 4 mg IVP Q6 PRN PRN Reason: Nausea/Vomiting Valsartan (Diovan) 320 mg PO DAILY [facility] Last Admin: 08/13/17 09:57 Dose: 320 mg - Labs Labs: 08/13/17 09:15 08/13/17 09:15 - Head Exam Head Exam: NORMAL INSPECTION - Eye Exam Eye Exam: Normal appearance - ENT Exam ENT Exam: Mucous Membranes Moist - Respiratory Exam Respiratory Exam: Clear to Ausculation Bilateral - Cardiovascular Exam Cardiovascular Exam: REGULAR RHYTHM - GI/Abdominal Exam GI & Abdominal Exam: Normal Bowel Sounds - Neurological Exam Neurological Exam: Awake, Oriented x3 Assessment and Plan (1) Lumbar spondylosis Status: Acute (2) Status post lumbar laminectomy Status: Acute (3) Anxiety Status: Acute (4) Hypertension Status: Acute (5) Gastritis Status: Acute - Assessment and Plan (Free Text) Plan: Contmeds cont observe drain will discharge if drain is less than 50 in 24 hrs. discussed with patient
--- NOTE | 2017-08-13 11:38 | CP.PCM.PN ---
Subjective - Date & Time of Evaluation Date of Evaluation: 08/12/17 Time of Evaluation: 17:00 - Subjective Subjective: Patient continues to have a lot of drain more than 100 cc over the past 24 hrs. Has no fever Has no chest pain Has minimal pain on the op site Objective - Vital Signs/Intake and Output Vital Signs (last 24 hours): Temp Pulse Resp BP Pulse Ox 97.6 F 88 18 131/68 96 08/13/17 08:36 08/13/17 09:57 08/13/17 08:36 08/13/17 09:57 08/13/17 08:36 Intake and Output: 08/13/17 08/13/17 06:59 18:59 Intake Total 65 65 Output Total 20 30 Balance 45 35 - Medications Medications: Current Medications Amlodipine Besylate (Norvasc) 10 mg PO DAILY [facility] Last Admin: 08/13/17 09:57 Dose: 10 mg Atorvastatin Calcium (Lipitor) 20 mg PO DAILY [facility] Last Admin: 08/13/17 09:57 Dose: 20 mg Carvedilol (Coreg) 12.5 mg PO BID [facility] Last Admin: 08/13/17 09:56 Dose: 12.5 mg Cyclobenzaprine HCl (Flexeril) 10 mg PO TID PRN PRN Reason: Muscle spasm Dexamethasone (Decadron) 2 mg PO Q12 [facility] Last Admin: 08/13/17 11:17 Dose: 2 mg Docusate Sodium (Colace) 100 mg PO BID [facility] Last Admin: 08/13/17 09:55 Dose: 100 mg Doxazosin Mesylate (Cardura) 4 mg PO BID [facility] Last Admin: 08/13/17 09:55 Dose: 4 mg Ergocalciferol (Drisdol 50,000 Intl Units Cap) 1 cap PO QWK [facility] Last Admin: 08/12/17 08:37 Dose: 1 cap Home Med (Vortioxetine Hydrobromide [Trintellix]) 20 mg PO DAILY [facility] Hydrochlorothiazide (Microzide) 12.5 mg PO DAILY [facility] Last Admin: 08/13/17 09:57 Dose: 12.5 mg Cefazolin Sodium/Dextrose (Ancef Iv 2 Gm Duplex) 2 gm in 50 mls @ 50 mls/hr IVPB Q8H [facility] PRN Reason: Protocol Last Admin: 08/13/17 05:59 Dose: 50 mls/hr Lactulose (Enulose) 20 gm PO DAILY PRN PRN Reason: Constipation Last Admin: 08/10/17 15:01 Dose: 20 gm Levothyroxine Sodium (Synthroid) 25 mcg PO DAILY@0630 [facility] Last Admin: 08/13/17 06:00 Dose: 25 mcg Morphine Sulfate (Morphine) 4 mg IVP Q4 PRN PRN Reason: Pain, severe (8-10) Ondansetron HCl (Zofran Inj) 4 mg IVP Q6 PRN PRN Reason: Nausea/Vomiting Valsartan (Diovan) 320 mg PO DAILY [facility] Last Admin: 08/13/17 09:57 Dose: 320 mg - Labs Labs: 08/13/17 09:15 08/13/17 09:15 - Head Exam Head Exam: NORMAL INSPECTION - Eye Exam Eye Exam: Normal appearance - ENT Exam ENT Exam: Mucous Membranes Moist - Respiratory Exam Respiratory Exam: Clear to Ausculation Bilateral - Cardiovascular Exam Cardiovascular Exam: REGULAR RHYTHM - GI/Abdominal Exam GI & Abdominal Exam: Normal Bowel Sounds - Neurological Exam Neurological Exam: Awake, CN II-XII Intact, Oriented x3 Assessment and Plan (1) Lumbar spondylosis Status: Acute (2) Status post lumbar laminectomy Status: Acute (3) Anxiety Status: Acute (4) Hypertension Status: Acute (5) Gastritis Status: Acute - Assessment and Plan (Free Text) Plan: Cont meds COnt tx Cont PT discussed with Dr Bowens and suggested keeping patient for another day. pain meds DC plan in am
--- NOTE | 2017-08-13 11:47 | CP.PCM.DIS ---
Provider - Provider Date of Admission: 08/08/17 07:12 Attending physician: Amos Cole MD Primary care physician: Amos Cole MD Diagnosis - Discharge Diagnosis (1) Lumbar spondylosis Status: Acute (2) Status post lumbar laminectomy Status: Acute (3) Anxiety Status: Acute (4) Hypertension Status: Acute (5) Gastritis Status: Acute Hospital Course - Lab Results Lab Results: Most Recent Lab Values WBC 13.6 K/uL (4.8-10.8) H 08/13/17 09:15 RBC 5.24 Mil/uL (4.40-5.90) 08/13/17 09:15 Hgb 14.2 g/dL (12.0-18.0) 08/13/17 09:15 Hct 42.5 % (35.0-51.0) 08/13/17 09:15 MCV 81.2 fl (80.0-94.0) 08/13/17 09:15 MCH 27.1 pg (27.0-31.0) 08/13/17 09:15 MCHC 33.4 g/dL (33.0-37.0) 08/13/17 09:15 RDW 16.2 % (11.5-14.5) H 08/13/17 09:15 Plt Count 227 K/uL (130-400) 08/13/17 09:15 MPV 8.6 fl (7.2-11.7) 08/13/17 09:15 Neut % (Auto) 77.4 % (50.0-75.0) H 08/13/17 09:15 Lymph % (Auto) 17.2 % (20.0-40.0) L 08/13/17 09:15 [place] % (Auto) 5.3 % (0.0-10.0) 08/13/17 09:15 Eos % (Auto) 0.0 % (0.0-4.0) 08/13/17 09:15 Baso % (Auto) 0.1 % (0.0-2.0) 08/13/17 09:15 Neut # (Auto) 10.6 K/uL (1.8-7.0) H 08/13/17 09:15 Lymph # (Auto) 2.3 K/uL (1.0-4.3) 08/13/17 09:15 [place] # (Auto) 0.7 K/uL (0.0-0.8) 08/13/17 09:15 Eos # (Auto) 0.0 K/uL (0.0-0.7) 08/13/17 09:15 Baso # (Auto) 0.0 K/uL (0.0-0.2) 08/13/17 09:15 Sodium 140 mmol/l (132-148) 08/13/17 09:15 Potassium 3.2 MMOL/L (3.6-5.0) L 08/13/17 09:15 Chloride 100 mmol/L (98-107) 08/13/17 09:15 Carbon Dioxide 29 mmol/L (22-30) 08/13/17 09:15 Anion Gap 14 (10-20) 08/13/17 09:15 BUN 22 mg/dl (9-20) H 08/13/17 09:15 Creatinine 0.9 mg/dl (0.8-1.5) 08/13/17 09:15 Est GFR ( Amer) > 60 08/13/17 09:15 Est GFR (Non-Af Amer) > 60 08/13/17 09:15 Random Glucose 163 mg/dL (75-110) H 08/13/17 09:15 Calcium 8.7 mg/dL (8.4-10.2) 08/13/17 09:15 Total Bilirubin 0.7 mg/dl (0.2-1.3) 08/13/17 09:15 AST 23 U/L (17-59) 08/13/17 09:15 ALT 41 U/L (21-72) 08/13/17 09:15 Alkaline Phosphatase 48 U/L (38-126) 08/13/17 09:15 Total Protein 6.5 G/DL (6.3-8.2) 08/13/17 09:15 Albumin 3.5 g/dL (3.5-5.0) 08/13/17 09:15 Globulin 3.0 gm/dL (2.2-3.9) 08/13/17 09:15 Albumin/Globulin Ratio 1.2 (1.0-2.1) 08/13/17 09:15 Blood Type O NEGATIVE 08/08/17 07:00 Blood Type Confirm O NEGATIVE 08/08/17 09:30 Antibody Screen Negative 08/08/17 07:00 BBK History Checked No verified bt 08/08/17 07:00 - Hospital Course Hospital Course: This is a 71 y/o male admitted for lumbar laminectomy Discharge Exam - Head Exam Head Exam: NORMAL INSPECTION Discharge Plan - Follow Up Plan Condition: GOOD Disposition: HOME/ ROUTINE Instructions: Laminectomy (DC), Lumbar Radiculopathy (GEN), Lumbar Brace (DC) Referrals: Ramana Bowens MD [Staff Provider] - Amos Cole MD [Primary Care Provider] -
[2017-08-13] MEDS ORDERED: Potassium Chloride 20 mEq ER Tab PO ONE (11:51)
--- NOTE | 2017-08-13 12:00 | CP.PCM.PCO ---
Assessment/Plan - Assessment/Plan Assessment (Free Text): Pt drained 110cc over past 24 hours with about 25cc in CARMELO drain at this time. Assessed pt at bedside with Dr. Cole who spoke to Dr. Bowens. Per basilio Adams to d/c drain. CARMELO drain d/c with tip intact. No bleeding or discharge noted. Dry dressing applied. Pt tolerated well. Pt advised not to shower until after seeing Dr. Cole in office on Sunday. Pt verbalized understanding to d /c instructions.
== END 2017-08-13 14:34 | disposition home or self-care (01) | DRG 460 ==
LOC: H.OPSURG 06:26 → H.MEDSURG1 07:12
PROVIDERS: ADMIT Family Medicine; ATTEND Family Medicine
PROC: 00NY0ZZ Release Lumbar Spinal Cord, Open Approach (ICD-10-PCS; 2017-08-08)
PROC: 0SG10Z1 (ICD-10-PCS; principal; 2017-08-08 07:45)
DX: M47.816 Spondylosis without myelopathy or radiculopathy, lumbar region (principal); E03.9 Hypothyroidism, unspecified; N18.9 Chronic kidney disease, unspecified; Z87.442 Personal history of urinary calculi; Z87.891 Personal history of nicotine dependence; E78.00 Pure hypercholesterolemia, unspecified; E78.5 Hyperlipidemia, unspecified; F41.9 Anxiety disorder, unspecified; H91.93 Unspecified hearing loss, bilateral; I12.9 Hypertensive chronic kidney disease with stage 1 through stage 4 chronic kidney disease, or unspecified chronic kidney disease; K29.70 Gastritis, unspecified, without bleeding; F32.9 Major depressive disorder, single episode, unspecified; G89.29 Other chronic pain; M19.90 Unspecified osteoarthritis, unspecified site; M51.26 Other intervertebral disc displacement, lumbar region

== ENCOUNTER 2017-08-27 13:08 | Inpatient (IN) | payer MEDICARE ==
[2017-08-27 13:08] VITALS: BMI 28.5
[2017-08-27 14:43] LABS: VENOUS BLOOD GAS BASE EXCESS 9.4 mmol/L (0.0-2.0); VENOUS BLOOD GAS PCO2 59 mmHg (40-60); VENOUS BLOOD GAS PO2 21 mm/Hg (30-55)
[2017-08-27] MEDS ORDERED: Morphine 4 MG/ML VIAL ONE (14:48)
[2017-08-27 14:51] LABS: BASO # 0.1 K/uL (0.0-0.2); EOS # 0.3 K/uL (0.0-0.7); EOS % 4.1 % (0.0-4.0); HEMOGLOBIN 14.2 g/dL (12.0-18.0); LYMPH # 1.9 K/uL (1.0-4.3); LYMPH % 24.1 % (20.0-40.0); MEAN CELL VOLUME 82.8 fl (80.0-94.0); MEAN CORPUSCULAR HEMOGLOBIN 27.2 pg (27.0-31.0); MEAN CORPUSCULAR HGB CONC 32.8 g/dL (33.0-37.0); MEAN PLATELET VOLUME 7.7 fl (7.2-11.7); MONO # 0.8 K/uL (0.0-0.8); MONO % 10.2 % (0.0-10.0); NEUT # 4.8 K/uL (1.8-7.0); NEUT % 60.6 % (50.0-75.0); RBC 5.21 Mil/uL (4.40-5.90); RED CELL DISTRIBUTION WIDTH 16.4 % (11.5-14.5)
[2017-08-27 14:59] LABS: PARTIAL THROMBOPLASTIN TIME 30.1 Seconds (25.6-37.1); PROTHROMBIN TIME 11.5 Seconds (9.8-13.1)
--- NOTE | 2017-08-27 15:01 | ED PDOC ---
HPI: General Adult Time Seen by Provider: 08/27/17 14:00 Chief Complaint (Nursing): Abnormal Skin Integrity Chief Complaint (Provider): Abnormal Skin Integrity History Per: Patient History/Exam Limitations: no limitations Onset/Duration Of Symptoms: Days (x3 weeks) Current Symptoms Are (Timing): Still Present Additional Complaint(s): 71 year old male with a past medical history of HTN, hypercholesterolemia, gastritis, and anxiety, who presents to the ED due to drainage from surgical wound. Patient states he underwent a lumbar laminectomy on 08/08/16. Reports there was drainage from the wound during his stay, which was removed. States he was discharged home and 4 days ago he started to have discharge from the wound with associated night sweats and chills, but not fever. Also reports headaches. States the wound discharge is sometimes thick and purulent and sometimes orange and clear. Reports seeing his PMD who recommended he present to the ED. Surgeon: Dr. Bowens PMD: Dr. Cole Past Medical History Reviewed: Historical Data, Nursing Documentation, Vital Signs Vital Signs: Last Vital Signs Temp 98.0 F 08/27/17 14:13 Pulse 77 08/27/17 14:13 Resp 16 08/27/17 14:13 BP 140/77 08/27/17 14:13 Pulse Ox 97 08/27/17 16:05 - Medical History PMH: Arthritis, Depression, Gastritis, HTN, Hypercholesterolemia, Hypothyroidism , Kidney Stones, Chronic Kidney Disease - Surgical History Surgical History: Tonsillectomy - Family History Family History: States: Unknown Family Hx - Social History Current smoker - smoking cessation education provided: No - Immunization History Hx Tetanus Toxoid Vaccination: No Hx Influenza Vaccination: No Hx Pneumococcal Vaccination: No - Home Medications Home Medications: Ambulatory Orders Medication Instructions Recorded Atorvastatin [Lipitor] 20 mg PO HS 06/13/17 Carvedilol [Coreg] 12.5 mg PO BID 06/13/17 Doxazosin Mesylate 4 mg PO BID 06/13/17 Levothyroxine [Synthroid] 25 mcg PO DAILY 06/13/17 Valsartan/Hydrochlorothiazide 1 tab PO DAILY 06/13/17 [Valsartan-Hctz 320-12.5 mg Tab] Vortioxetine Hydrobromide 20 mg PO DAILY 06/13/17 [Trintellix] amLODIPine [Norvasc] 10 mg PO DAILY 06/13/17 Ergocalciferol (Vitamin D2) 50,000 unit PO [place] 08/27/17 [Vitamin D2] - Allergies Allergies/Adverse Reactions: Allergies Allergy/AdvReac Type Severity Reaction Status Date / Time No Known Allergies Allergy Verified 08/08/17 07:36 Review of Systems ROS Statement: Except As Marked, All Systems Reviewed And Found Negative Constitutional: Positive for: Chills, Sweats. Negative for: Fever Skin: Positive for: Lesions (wound with discharge) Neurological: Positive for: Headache Physical Exam - Reviewed Nursing Documentation Reviewed: Yes Vital Signs Reviewed: Yes - Physical Exam Appears: Positive for: Non-toxic Head Exam: Positive for: ATRAUMATIC, NORMOCEPHALIC Skin: Positive for: Warm, Dry Eye Exam: Positive for: EOMI, PERRL ENT: Positive for: Pharynx Is (clear) Neck: Positive for: Painless ROM, Supple Cardiovascular/Chest: Positive for: Regular Rate, Rhythm. Negative for: Murmur Respiratory: Negative for: Accessory Muscle Use, Respiratory Distress Gastrointestinal/Abdominal: Positive for: Soft. Negative for: Tenderness Back: Positive for: Other (midline lumbar surgical wound, dehiscence of 1.5 cm at the most inferior point with coagulated purulent discharge and surrounding erythema, warmth and induration ). Negative for: Decreased ROM Extremity: Positive for: Normal ROM. Negative for: Deformity Lymphatic: Negative for: Adenopathy Neurologic/Psych: Positive for: Alert. Negative for: Motor/Sensory Deficits - Laboratory Results Result Diagrams: 08/27/17 14:27 08/27/17 14:27 - ECG O2 Sat by Pulse Oximetry: 97 (RA) Pulse Ox Interpretation: Normal Medical Decision Making Medical Decision Making: Time: 14:08 Initial Impression: Wound dehiscence and infection Initial Plan: --EKG --VBG Shock Panel --CMP --CBC w/ differential --PTT --PT --Portable CXR --Toradol 15 mg IVP --Morphine 2 mg IVP --Blood culture --Urine culture --Wound culture --IV Insertion --Urinalysis ANETTE BLOUNT and [facility] [employer]. Pt will be hospitalized for wound dehiscence and possible surgical site infection. ANETTE pt plan of care. Scribe Attestation: Documented by Sadi Schafer, acting as a scribe for Mckayla Borjas MD. Provider Scribe Attestation: All medical record entries made by the Scribe were at my direction and personally dictated by me. I have reviewed the chart and agree that the record accurately reflects my personal performance of the history, physical exam, medical decision making, and the department course for this patient. I have also personally directed, reviewed, and agree with the discharge instructions and disposition. Disposition - Clinical Impression Clinical Impression: Status post lumbar laminectomy, Wound dehiscence, surgical, Cellulitis of back Counseled Patient/Family Regarding: Studies Performed, Diagnosis - Disposition Disposition Time: 15:30 Condition: STABLE - Pt Status Changed To: Hospital Disposition Of: Inpatient - Admit Certification Admit to Inpatient:: After my assessment, the patient will require hospitalization for at least two midnights. This is because of the severity of symptoms shown, intensity of services needed, and/or the medical risk in this patient being treated as an outpatient. - POA Present On Arrival: Surgical Site Infection
[2017-08-27 15:04] LABS: ALBUMIN 3.7 g/dL (3.5-5.0); ALT/SGPT 39 U/L (21-72); AST/SGOT 25 U/L (17-59); BLOOD UREA NITROGEN 17 mg/dl (9-20); CALCIUM 9.2 mg/dL (8.4-10.2); GFR AFRICAN-AMERICAN > 60; GFR NON-AFRICAN AMERICAN > 60
[2017-08-27 15:33] LABS: URINE AMORPHOUS SEDIMENT RARE /ul (<OCC); URINE BILIRUBIN NEGATIVE (NEGATIVE); URINE BLOOD NEGATIVE (NEGATIVE); URINE CLARITY CLOUDY (Clear); URINE COLOR AMBER (YELLOW); URINE GLUCOSE (UA) NEG (Normal); URINE LEUKOCYTE ESTERASE NEG Leu/uL (Negative); URINE NITRATE NEGATIVE (NEGATIVE); URINE PROTEIN NEGATIVE (NEGATIVE)
[2017-08-27] MEDS ORDERED: Piperacillin/Tazobact 3.375 GM in Sodium Chloride 0.9% 100 ML IVPB STA (15:34)
--- NOTE | 2017-08-27 15:49 | RAD ---
HISTORY: cellulitis COMPARISON: No prior. FINDINGS: LUNGS: The lungs are clear. PLEURA: No significant pleural effusion identified, no pneumothorax apparent. CARDIOVASCULAR: Normal. OSSEOUS STRUCTURES: No significant abnormalities. VISUALIZED UPPER ABDOMEN: Normal. OTHER FINDINGS: None. IMPRESSION: No active pulmonary disease.
[2017-08-27] MEDS ORDERED: Piperacillin/Tazobact 3.375 gm Inj IVPB ONE (15:50)
[2017-08-27] MEDS ORDERED: Ergocalciferol 50,000 Intl Units Cap PO SCH (23:30)
[2017-08-28] MEDS: Piperacillin/Tazobact 3.375 GM in Sodium Chloride 0.9% 100 ML IVPB SCH ×2 (00:34→08:49)
[2017-08-28] MEDS: Levothyroxine 25 MCG TAB PO SCH (06:32)
[2017-08-28] MEDS ORDERED: VORTIOXETINE HYDROBROMIDE 20 MG PO SCH (09:00)
[2017-08-28] MEDS ORDERED: Patient's Own Med (Valsartan/Hydrochlorothiazide [Valsartan-Hctz 320-12.5 Mg Tab] 1 TAB) PO SCH (09:00)
--- NOTE | 2017-08-28 12:42 | CP.PCM.CON ---
History of Present Illness - History of Present Illness History of Present Illness: 71M 3 weeks s/p L4/L5 laminectomy and posterolateral fusion presents with increased drainage from incision and pain and chills. He was last seen by Dr. Bowens last week and was healing well at that time. Denies any numbness/tingling, change in bowel/bladder habits. Review of Systems - Review of Systems All systems: reviewed and no additional remarkable complaints except - Constitutional Constitutional: As Per HPI - Musculoskeletal Musculoskeletal: As Per HPI - Integumentary Integumentary: As Per HPI - Neurological Neurological: As Per HPI Past Patient History - Past Medical History & Family History Past Medical History?: Yes Past Family History: Reviewed and not pertinent - Past Social History Smoking Status: Light Smoker < 10 Cigarettes Daily - CARDIAC Hx Hypercholesterolemia: Yes Hx Hypertension: Yes - PULMONARY Hx Respiratory Disorders: No - NEUROLOGICAL Hx Neurological Disorder: No - HEENT Hx HEENT Problems: Yes Other/Comment: Use eyeglasses. Has bilateral Hearing aid - Hard of hearing - RENAL Hx Chronic Kidney Disease: Yes Hx Kidney Stones: Yes - ENDOCRINE/METABOLIC Hx Endocrine Disorders: Yes Hx Hypothyroidism: Yes - HEMATOLOGICAL/ONCOLOGICAL Hx Blood Disorders: No Hx Blood Transfusions: No - INTEGUMENTARY Hx Dermatological Problems: No - MUSCULOSKELETAL/RHEUMATOLOGICAL Hx Musculoskeletal Disorders: No Hx Falls: No - GASTROINTESTINAL Hx Gastrointestinal Disorders: Yes Hx Gastritis: Yes - GENITOURINARY/GYNECOLOGICAL Hx Genitourinary Disorders: No - PSYCHIATRIC Hx Psychophysiologic Disorder: No Hx Substance Use: No - SURGICAL HISTORY Hx Herniorrhaphy: Yes (x2) Hx Orthopedic Surgery: Yes (Rt. Shoulder Rotator cup Sx) Hx Tonsillectomy: Yes Other/Comment: s/p Laminectomy 08/09/2017. Left Knee Sx for torn Ligament. Multiple ear Sx - ANESTHESIA Hx Anesthesia: Yes Hx Anesthesia Reactions: No Hx Malignant Hyperthermia: No Has any member of the family had a problem w/ anesthesia?: No Meds Allergies/Adverse Reactions: Allergies Allergy/AdvReac Type Severity Reaction Status Date / Time No Known Allergies Allergy Verified 08/08/17 07:36 - Medications Medications: Current Medications Amlodipine Besylate (Norvasc) 10 mg PO DAILY [facility] Last Admin: 08/28/17 08:50 Dose: 10 mg Atorvastatin Calcium (Lipitor) 20 mg PO HS [facility] Last Admin: 08/28/17 00:03 Dose: 20 mg Carvedilol (Coreg) 12.5 mg PO BID [facility] Last Admin: 08/28/17 08:50 Dose: 12.5 mg Doxazosin Mesylate (Cardura) 4 mg PO BID [facility] Last Admin: 08/28/17 08:50 Dose: 4 mg Ergocalciferol (Drisdol 50,000 Intl Units Cap) 1 cap PO MO [facility] Last Admin: 08/27/17 23:39 Dose: Not Given Home Med (Vortioxetine Hydrobromide [Trintellix]) 20 mg PO DAILY [facility] Hydrochlorothiazide (Microzide) 12.5 mg PO DAILY [facility] Last Admin: 08/28/17 08:50 Dose: 12.5 mg Hydromorphone HCl (Dilaudid) 2 mg IVP Q8 PRN PRN Reason: Pain, moderate (4-7) Piperacillin Sod/Tazobactam (Sod 3.375 gm/ Sodium Chloride) 100 mls @ 100 mls/ hr IVPB Q8 [facility] PRN Reason: Protocol Last Admin: 08/28/17 08:49 Dose: 100 mls/hr Vancomycin HCl 1 gm/ Sodium (Chloride) 250 mls @ 166.667 mls/hr IVPB DAILY [facility] PRN Reason: Protocol Last Admin: 08/28/17 09:37 Dose: 166.667 mls/hr Levothyroxine Sodium (Synthroid) 25 mcg PO DAILY@0630 [facility] Last Admin: 08/28/17 06:32 Dose: 25 mcg Valsartan (Diovan) 320 mg PO DAILY [facility] Last Admin: 08/28/17 08:50 Dose: 320 mg Physical Exam - Constitutional Appears: Well, No Acute Distress - Back Exam Additional comments: 1cm wound dehiscence at inferior aspect of wound. Noted fibrinous exudate, some non adherent and debrided. good granulation tissue noted. Moderate amount of serous drainage from wound. No fluctuance noted, not able to express any drainage. Minimal erythema. Rest of incision is dry and well healed NVID, sensation intact L2-S1, +ROM great toe ext, DF/PF, knee flex/ext 5/5 strength +dp/PT pulses calves soft NT neg homans - Neurological Exam Neurological exam: Alert, Oriented x3 - Psychiatric Exam Psychiatric exam: Normal Affect, Normal Mood Results - Vital Signs Recent Vital Signs: Last Vital Signs Temp 98.1 F 08/28/17 08:16 Pulse 60 08/28/17 08:50 Resp 18 08/28/17 08:16 BP 152/84 H 08/28/17 08:50 Pulse Ox 97 08/28/17 08:16 - Labs Result Diagrams: 08/27/17 14:27 08/27/17 14:27 Labs: Laboratory Results - last 24 hr 08/27/17 08/27/17 08/27/17 14:14 14:27 14:27 WBC 8.0 RBC 5.21 Hgb 14.2 Hct 43.1 MCV 82.8 MCH 27.2 MCHC 32.8 L RDW 16.4 H Plt Count 232 MPV 7.7 Neut % (Auto) 60.6 Lymph % (Auto) 24.1 Troup % (Auto) 10.2 H Eos % (Auto) 4.1 H Baso % (Auto) 1.0 Neut # (Auto) 4.8 Lymph # (Auto) 1.9 Troup # (Auto) 0.8 Eos # (Auto) 0.3 Baso # (Auto) 0.1 PT INR APTT pO2 21 L VBG pH 7.40 VBG pCO2 59 VBG HCO3 30.4 VBG Total CO2 38.3 H VBG O2 Sat (Calc) 32.6 L VBG Base Excess 9.4 H VBG Potassium 3.6 A-a O2 Difference 55.0 Sodium 139.0 145 Chloride 106.0 101 Glucose 98 Lactate 0.9 FiO2 21.0 Crit Value Called To Dr eileen villatoro Crit Value Called By 15 Crit Value Read Back Y Blood Gas Notified Time 1440 Potassium 3.7 Carbon Dioxide 34 H Anion Gap 14 BUN 17 Creatinine 1.0 Est GFR ( Amer) > 60 Est GFR (Non-Af Amer) > 60 Random Glucose 99 Calcium 9.2 Total Bilirubin 0.9 AST 25 ALT 39 Alkaline Phosphatase 69 Total Protein 7.4 Albumin 3.7 Globulin 3.6 Albumin/Globulin Ratio 1.0 Venous Blood Potassium 3.6 Urine Color Urine Clarity Urine pH Ur Specific Novi Urine Protein Urine Glucose (UA) Urine Ketones Urine Blood Urine Nitrate Urine Bilirubin Urine Urobilinogen Ur Leukocyte Esterase Urine Microscopic WBC Amorphous Sediment Hyaline Casts Blood Type Antibody Screen BBK History Checked 08/27/17 08/27/17 08/27/17 14:27 15:13 15:33 WBC RBC Hgb Hct MCV MCH MCHC RDW Plt Count MPV Neut % (Auto) Lymph % (Auto) Troup % (Auto) Eos % (Auto) Baso % (Auto) Neut # (Auto) Lymph # (Auto) Troup # (Auto) Eos # (Auto) Baso # (Auto) PT 11.5 INR 1.0 APTT 30.1 pO2 VBG pH VBG pCO2 VBG HCO3 VBG Total CO2 VBG O2 Sat (Calc) VBG Base Excess VBG Potassium A-a O2 Difference Sodium Chloride Glucose Lactate FiO2 Crit Value Called To Crit Value Called By Crit Value Read Back Blood Gas Notified Time Potassium Carbon Dioxide Anion Gap BUN Creatinine Est GFR ( Amer) Est GFR (Non-Af Amer) Random Glucose Calcium Total Bilirubin AST ALT Alkaline Phosphatase Total Protein Albumin Globulin Albumin/Globulin Ratio Venous Blood Potassium Urine Color Erica Urine Clarity Cloudy Urine pH 6.0 Ur Specific Novi 1.020 Urine Protein Negative Urine Glucose (UA) Neg Urine Ketones Negative Urine Blood Negative Urine Nitrate Negative Urine Bilirubin Negative Urine Urobilinogen 2.0 Ur Leukocyte Esterase Neg Urine Microscopic WBC 3 Amorphous Sediment Rare H Hyaline Casts 6-10 H Blood Type O NEGATIVE Antibody Screen Negative BBK History Checked Patient has bt Assessment & Plan (1) Wound dehiscence, surgical Assessment and Plan: MRI lumbar spine as per Dr. Bowens wound cx taken ID consult pending, on vanco dressing changes NPO p MN, will review imaging and for possible OR if needed d/w Dr. Bowens, agrees with above Status: Acute
--- NOTE | 2017-08-28 15:20 | CP.PCM.PN ---
Subjective - Date & Time of Evaluation Date of Evaluation: 08/28/17 Time of Evaluation: 15:15 - Subjective Subjective: I D NOTE FULL CONSULT DICTATED POST OP LAMINECTOMY /FUSION C INFECTION (HAS DRAINAGE) VANCOMYCIN 1 GM IVPB Q12H FOR INITIAL COURSE OF TREATMENT CHANGE TO ROCEPHEN FOR INCREASED CSF LEVELS drainage:heavy growth of gram positive cocci Objective - Vital Signs/Intake and Output Vital Signs (last 24 hours): Temp Pulse Resp BP Pulse Ox 98.1 F 60 18 152/84 H 97 08/28/17 08:16 08/28/17 08:50 08/28/17 08:16 08/28/17 08:50 08/28/17 08:16 - Medications Medications: Current Medications Amlodipine Besylate (Norvasc) 10 mg PO DAILY [facility] Last Admin: 08/28/17 08:50 Dose: 10 mg Atorvastatin Calcium (Lipitor) 20 mg PO HS [facility] Last Admin: 08/28/17 00:03 Dose: 20 mg Carvedilol (Coreg) 12.5 mg PO BID [facility] Last Admin: 08/28/17 08:50 Dose: 12.5 mg Doxazosin Mesylate (Cardura) 4 mg PO BID [facility] Last Admin: 08/28/17 08:50 Dose: 4 mg Ergocalciferol (Drisdol 50,000 Intl Units Cap) 1 cap PO MO [facility] Last Admin: 08/27/17 23:39 Dose: Not Given Home Med (Vortioxetine Hydrobromide [Trintellix]) 20 mg PO DAILY [facility] Hydrochlorothiazide (Microzide) 12.5 mg PO DAILY [facility] Last Admin: 08/28/17 08:50 Dose: 12.5 mg Hydromorphone HCl (Dilaudid) 2 mg IVP Q8 PRN PRN Reason: Pain, moderate (4-7) Vancomycin HCl 1 gm/ Sodium (Chloride) 250 mls @ 166.667 mls/hr IVPB Q12 [facility] PRN Reason: Protocol Ceftriaxone Sodium 2 gm/ (Sodium Chloride) 100 mls @ 100 mls/hr IVPB DAILY [facility] PRN Reason: Protocol Levothyroxine Sodium (Synthroid) 25 mcg PO DAILY@0630 [facility] Last Admin: 08/28/17 06:32 Dose: 25 mcg Valsartan (Diovan) 320 mg PO DAILY [facility] Last Admin: 08/28/17 08:50 Dose: 320 mg - Labs Labs: 08/27/17 14:27 08/27/17 14:27 PT 11.5 Seconds (9.8-13.1) 08/27/17 14:27 INR 1.0 (0.9-1.2) 08/27/17 14:27 APTT 30.1 Seconds (25.6-37.1) 08/27/17 14:27
[2017-08-28] MEDS: cefTRIAXone 2 GM in Sodium Chloride 0.9% 100 ML IVPB SCH (15:57)
[2017-08-28] MEDS ORDERED: Gadodiamide 287 MG/ML VIAL (15ML) IV ONE (18:07)
--- NOTE | 2017-08-28 21:34 | CON ---
INFECTIOUS DISEASE CONSULTATION DATE: HISTORY OF PRESENT ILLNESS: The patient is a 71-year-old male who is 3 weeks status post L4-L5 laminectomy and posterolateral fusion who presents with increased drainage from the incision, also gives history of pain and chills. The patient states that when he was immediately postop in the hospital, surgery was done on 08/08/2017, he had some drainage then and he did complain of sweats and chills. As he went home, he missed the few days, but then subsequently became daily. He did not take a temperature, so I do not know what his fever may have been. The patient states he has significant less pain than he did before and he has no numbness or tingling in his lower extremities and he is doing well in regards to urinary tract and bowel. He had some multiple cultures taken of the drainage from the lower back and these are obviously pending, although Gram-stain showed some Gram-positive cocci. PAST MEDICAL HISTORY: The patient with hypertension, hyperlipidemia, diabetes, and thyroid disease. Other past medical history includes hypothyroidism, kidney stones, chronic kidney disease, and arthritis. MEDICATIONS: On multiple medications. ALLERGIES: NO HISTORY OF ALLERGIES. PHYSICAL EXAMINATION: GENERAL: The patient is alert, cooperative, pleasant and oriented to time and place. HEENT: Within normal limits. NECK: Supple. LUNGS: Clear. HEART: Regular sinus rhythm. ABDOMEN: Soft with positive bowel sounds. EXTREMITIES: No CCE. BACK: At the distal end of the suture line, there is drainage at this moment, not significant drainage, but the gauze on top of the drainage was soaked and the area around the lower end or the distal end of the incision site is erythematous. At present time, we will change his antibiotics to Rocephin from the Zosyn, and we will increase the dose of vancomycin for the next day, but probably we will either give a lower dose or daptomycin considering the history of chronic renal disease. LABORATORY DATA: Creatinine is 1.0, GFR is greater than 60, BUN is 17. Sodium 145 and potassium 3.7. Liver function tests are within normal limits. Globulin and albumin is within normal limits. Random glucose is 99. Coagulation studies are within normal limits. White count is 8. He will need at least 4 to 6 weeks of IV antibiotic treatment. Of note, we will likely consider him receiving daptomycin at home along with the Rocephin. Aric Torres MD MTDHector
--- NOTE | 2017-08-29 02:42 | CP.PCM.HP ---
History of Present Illness - History of Present Illness History of Present Illness: This is a 71 y/o male admitted for persistent discharge on laminectomy op site 3 weeks after surgery. He had a lumbar laminectomy 3 weeks ago and stayed in the hospital for almost a week due excessive drainage post op. He was sent home and had a follow up in my office a week later and was noted to have a slight drainage but was clear. He was sent home on po antibiotics but noted to have low grade fever and sweats at night hence sought evaluation at the ER. Medical Hx gastritis HTN anxiety Present on Admission - Present on Admission Any Indicators Present on Admission: No History of DVT/PE: No History of Uncontrolled Diabetes: No Urinary Catheter: No Decubitus Ulcer Present: No Past Patient History - Past Medical History & Family History Past Medical History?: Yes Past Family History: Reviewed and not pertinent - Past Social History Smoking Status: Light Smoker < 10 Cigarettes Daily - CARDIAC Hx Hypercholesterolemia: Yes Hx Hypertension: Yes - PULMONARY Hx Respiratory Disorders: No - NEUROLOGICAL Hx Neurological Disorder: No - HEENT Hx HEENT Problems: Yes Other/Comment: Use eyeglasses. Has bilateral Hearing aid - Hard of hearing - RENAL Hx Chronic Kidney Disease: Yes Hx Kidney Stones: Yes - ENDOCRINE/METABOLIC Hx Endocrine Disorders: Yes Hx Hypothyroidism: Yes - HEMATOLOGICAL/ONCOLOGICAL Hx Blood Disorders: No Hx Blood Transfusions: No - INTEGUMENTARY Hx Dermatological Problems: No - MUSCULOSKELETAL/RHEUMATOLOGICAL Hx Musculoskeletal Disorders: No Hx Falls: No - GASTROINTESTINAL Hx Gastrointestinal Disorders: Yes Hx Gastritis: Yes - GENITOURINARY/GYNECOLOGICAL Hx Genitourinary Disorders: No - PSYCHIATRIC Hx Psychophysiologic Disorder: No Hx Substance Use: No - SURGICAL HISTORY Hx Herniorrhaphy: Yes (x2) Hx Orthopedic Surgery: Yes (Rt. Shoulder Rotator cup Sx) Hx Tonsillectomy: Yes Other/Comment: s/p Laminectomy 08/09/2017. Left Knee Sx for torn Ligament. Multiple ear Sx - ANESTHESIA Hx Anesthesia: Yes Hx Anesthesia Reactions: No Hx Malignant Hyperthermia: No Has any member of the family had a problem w/ anesthesia?: No Meds Allergies/Adverse Reactions: Allergies Allergy/AdvReac Type Severity Reaction Status Date / Time No Known Allergies Allergy Verified 08/08/17 07:36 Physical Exam - Eye Exam Eye Exam: Normal appearance - ENT Exam ENT Exam: Mucous Membranes Moist - Respiratory Exam Respiratory Exam: Clear to Auscultation Bilateral - Cardiovascular Exam Cardiovascular Exam: REGULAR RHYTHM - GI/Abdominal Exam GI & Abdominal Exam: Normal Bowel Sounds - Back Exam Additional comments: wound dehiscence about 1.5 cm inferior part of incison site slightly purulent discharge on wound site - Neurological Exam Neurological exam: CN II-XII Intact, Oriented x3 - Psychiatric Exam Psychiatric exam: Normal Mood Results - Vital Signs Recent Vital Signs: Last Vital Signs Temp 97.9 F 08/28/17 23:31 Pulse 68 08/28/17 23:31 Resp 18 08/28/17 23:31 BP 148/87 08/28/17 23:31 Pulse Ox 98 08/28/17 23:31 - Labs Result Diagrams: 08/27/17 14:27 08/27/17 14:27 Assessment & Plan (1) Infected wound Status: Acute (2) Status post lumbar laminectomy Status: Acute (3) Wound dehiscence, surgical Status: Acute (4) Hypertension Status: Acute - Assessment and Plan (Free Text) Plan: Cont meds start IV antibiotics ID consult wound care consult with Dr Bowens Medically stable for wound washing
--- NOTE | 2017-08-29 03:07 | CARD ---
APPROVED REPORT EKG Measurement Heart [id number] <Conclusion> Sinus bradycardia Otherwise normal ECG
[2017-08-29 06:26] LABS: HEMOGLOBIN 13.3 g/dL (12.0-18.0); MEAN CELL VOLUME 82.8 fl (80.0-94.0); MEAN CORPUSCULAR HGB CONC 33.8 g/dL (33.0-37.0); RBC 4.76 Mil/uL (4.40-5.90); WHITE BLOOD COUNT 8.4 K/uL (4.8-10.8)
[2017-08-29 06:31] LABS: BLOOD UREA NITROGEN 15 mg/dl (9-20); CALCIUM 8.5 mg/dL (8.4-10.2); GFR AFRICAN-AMERICAN > 60; GFR NON-AFRICAN AMERICAN > 60
[2017-08-29] MEDS: Levothyroxine 25 MCG TAB PO SCH (07:51)
[2017-08-29] MEDS: cefTRIAXone 2 GM in Sodium Chloride 0.9% 100 ML IVPB SCH (09:16)
--- NOTE | 2017-08-29 13:38 | MRI ---
PROCEDURE: MR LUMBAR SPINE WITH AND WITHOUT CONTRAST HISTORY: LS wound dehiscence s/p laminectomy. Date surgery is reported 08/09/2017. COMPARISON: None available. TECHNIQUE: Multiecho multiplanar sequences were performed through the lumbar spine with and without the use of intravenous contrast. 50 cc of Omniscan was utilized. FINDINGS: Patient appears to be at least status post partial bilateral laminectomies at L4 and L5 decompression the L4-5 disc interspace level. Fluid is seen at the midline posterior spinal soft tissues operative site measuring 6.8 x 6.0 x 1.3 cm (superoinferior by anteroposterior by transverse dimensions). The subcutaneous portion of the fluid collection extends from the mid L3 L3 down to the mid L5 levels. Following contrast administration, peripheral enhances appreciated including the posterior epidural space with low limited bladder fluid abutting the midline posterior epidural space. Paraspinal musculature and subcutaneous fat also enhance. The appearance is nonspecific with abscess not excluded. Noninfected seroma is a possibility. Lumbar curvature appears within normal limits. There is no fracture or spondylolisthesis identified. Likely benign meningioma is appreciate the L3 vertebral body. No definite suspicious matter signal changes are appreciated throughout. Limited Schmorl's node development is seen at the inferior endplates of T12, L1 and L2. Conus medullaris appears normal terminating at the L1-2 interspace level. Prevertebral soft tissues appear unremarkable. T12-L1: No disc herniation, spinal canal stenosis or neural foraminal narrowing. L1-2: No disc herniation, spinal canal stenosis or neural foraminal narrowing. Minimal generalized disc bulge is appreciated without stenosis. L2-3: No disc herniation, spinal canal stenosis or neural foraminal narrowing. L3-4: Disc herniation, spinal canal stenosis or neural foraminal narrowing. Moderate facet arthropathy is appreciated without significant stenosis resulting. L4-5: No disc herniation. Mild bilateral neural foraminal stenosis results from prominent facet joint arthropathy and minimal disc bulging. Central canal is decompressed and post aforementioned laminectomy. L5-S1: No disc herniation identified. No significant central canal or neural foraminal stenosis is identified although generalized disc bulging is appreciated with limited posterior annular tear. OTHER FINDINGS: None. IMPRESSION: 1. Patient seen to be at least partial bilateral laminectomy at L4 and L5 vertebral bodies decompressing the L4 central canal with 6.8 x 6.0 x 1.3 cm fluid collection identified primarily at the subcutaneous fat from mid L3-L5 vertebral bodies but also extending to abut the L3-4 posterior epidural space appear peripheral enhancement is associated with this fluid collection. Consider possible seroma though abscess is not excluded. Further clinical correlation is advised tear. Limited posterior epidural enhancement is appreciated. 2. Multilevel facet joint degenerative arthropathy combines with limited disc bulging at a few levels resulting in variable bilateral neural foraminal stenosis though none appears severe. Concordant preliminary report from [facility], 08/28/2017.
[2017-08-29] MEDS ORDERED: Lidocaine 1% Inj (20ml) ONE (13:48)
--- NOTE | 2017-08-29 13:55 | CP.PCM.PN ---
Subjective - Date & Time of Evaluation Date of Evaluation: 08/29/17 Time of Evaluation: 07:00 - Subjective Subjective: Patient states pain is controlled. No new complaints. Patient seen and examined by Dr. Bowens who performed bedside I&D, states seroma drained, no signs of infection. Patient to have twice daily dressing changes. He reviewed MRI as well. Objective - Vital Signs/Intake and Output Vital Signs (last 24 hours): Temp Pulse Resp BP Pulse Ox 98.2 F 72 18 127/86 98 08/29/17 08:16 08/29/17 09:14 08/29/17 08:16 08/29/17 09:14 08/29/17 08:16 - Medications Medications: Current Medications Amlodipine Besylate (Norvasc) 10 mg PO DAILY [facility] Last Admin: 08/29/17 09:14 Dose: 10 mg Atorvastatin Calcium (Lipitor) 20 mg PO HS [facility] Last Admin: 08/28/17 21:20 Dose: 20 mg Carvedilol (Coreg) 12.5 mg PO BID [facility] Last Admin: 08/29/17 09:12 Dose: 12.5 mg Doxazosin Mesylate (Cardura) 4 mg PO BID [facility] Last Admin: 08/29/17 09:11 Dose: 4 mg Ergocalciferol (Drisdol 50,000 Intl Units Cap) 1 cap PO MO [facility] Last Admin: 08/27/17 23:39 Dose: Not Given Home Med (Vortioxetine Hydrobromide [Trintellix]) 20 mg PO DAILY [facility] Hydrochlorothiazide (Microzide) 12.5 mg PO DAILY [facility] Last Admin: 08/29/17 09:14 Dose: 12.5 mg Hydromorphone HCl (Dilaudid) 2 mg IVP Q8 PRN PRN Reason: Pain, moderate (4-7) Vancomycin HCl 1 gm/ Sodium (Chloride) 250 mls @ 166.667 mls/hr IVPB Q12 [facility] PRN Reason: Protocol Last Admin: 08/29/17 10:48 Dose: 166.667 mls/hr Ceftriaxone Sodium 2 gm/ (Sodium Chloride) 100 mls @ 100 mls/hr IVPB DAILY [facility] PRN Reason: Protocol Last Admin: 08/29/17 09:16 Dose: 100 mls/hr Lactobacillus Acidophilus (Bacid Acidophilus) 1 cap PO BID [facility] Levothyroxine Sodium (Synthroid) 25 mcg PO DAILY@0630 [facility] Last Admin: 08/29/17 07:51 Dose: 25 mcg Valsartan (Diovan) 320 mg PO DAILY [facility] Last Admin: 08/29/17 09:13 Dose: 320 mg - Labs Labs: 08/29/17 05:50 08/29/17 05:50 PT 11.5 Seconds (9.8-13.1) 08/27/17 14:27 INR 1.0 (0.9-1.2) 08/27/17 14:27 APTT 30.1 Seconds (25.6-37.1) 08/27/17 14:27 - Back Exam Additional comments: serous drainage noted, no erythema patient seen and examined and seroma drained by Dr. Bowens Assessment and Plan (1) Wound dehiscence, surgical Assessment & Plan: with seroma no clinical evidence of deep infection per Dr. Bowens cont abx as per ID dressing changes d/w dr. Bowens agrees with above Status: Acute Radiology Interpretation - Radiology Interpretation #3 Interpretation: Patient Name / ID : EVETTE MATTHEWS / [id number] Exam Date : 08/28/2017 18:04:02 ( Approved ) Study Comment : Sex / Age : M / 71Y Creator : Joseph Sheikh MD Dictator : Joseph Sheikh MD Pharmacist Hospital : [employer] : Joseph Sheikh MD Approver2 : Report Date : 08/29/2017 13:31:47 My Comment : PROCEDURE: MR LUMBAR SPINE WITH AND WITHOUT CONTRAST HISTORY: LS wound dehiscence s/p laminectomy. Date surgery is reported 08/09/2017. COMPARISON: None available. TECHNIQUE: Multiecho multiplanar sequences were performed through the lumbar spine with and without the use of intravenous contrast. 50 cc of Omniscan was utilized. FINDINGS: Patient appears to be at least status post partial bilateral laminectomies at L4 and L5 decompression the L4-5 disc interspace level. Fluid is seen at the midline posterior spinal soft tissues operative site measuring 6.8 x 6.0 x 1.3 cm (superoinferior by anteroposterior by transverse dimensions). The subcutaneous portion of the fluid collection extends from the mid L3 L3 down to the mid L5 levels. Following contrast administration, peripheral enhances appreciated including the posterior epidural space with low limited bladder fluid abutting the midline posterior epidural space. Paraspinal musculature and subcutaneous fat also enhance. The appearance is nonspecific with abscess not excluded. Noninfected seroma is a possibility. Lumbar curvature appears within normal limits. There is no fracture or spondylolisthesis identified. Likely benign meningioma is appreciate the L3 vertebral body. No definite suspicious matter signal changes are appreciated throughout. Limited Schmorl's node development is seen at the inferior endplates of T12, L1 and L2. Conus medullaris appears normal terminating at the L1-2 interspace level. Prevertebral soft tissues appear unremarkable. T12-L1: No disc herniation, spinal canal stenosis or neural foraminal narrowing. L1-2: No disc herniation, spinal canal stenosis or neural foraminal narrowing. Minimal generalized disc bulge is appreciated without stenosis. L2-3: No disc herniation, spinal canal stenosis or neural foraminal narrowing. L3-4: Disc herniation, spinal canal stenosis or neural foraminal narrowing. Moderate facet arthropathy is appreciated without significant stenosis resulting. L4-5: No disc herniation. Mild bilateral neural foraminal stenosis results from prominent facet joint arthropathy and minimal disc bulging. Central canal is decompressed and post aforementioned laminectomy. L5-S1: No disc herniation identified. No significant central canal or neural foraminal stenosis is identified although generalized disc bulging is appreciated with limited posterior annular tear. OTHER FINDINGS: None. IMPRESSION: 1. Patient seen to be at least partial bilateral laminectomy at L4 and L5 vertebral bodies decompressing the L4 central canal with 6.8 x 6.0 x 1.3 cm fluid collection identified primarily at the subcutaneous fat from mid L3-L5 vertebral bodies but also extending to abut the L3-4 posterior epidural space appear peripheral enhancement is associated with this fluid collection. Consider possible seroma though abscess is not excluded. Further clinical correlation is advised tear. Limited posterior epidural enhancement is appreciated. 2. Multilevel facet joint degenerative arthropathy combines with limited disc bulging at a few levels resulting in variable bilateral neural foraminal stenosis though none appears severe. Concordant preliminary report from [facility], 08/28/2017.
--- NOTE | 2017-08-29 14:20 | PCM.SURG1 ---
Surgeon's Initial Post Op Note - Surgeon's Notes Surgeon: Kiet Tolentino MD Telephone Exchange Operator: None Type of Anesthesia: Local Pre-Operative Diagnosis: infection Operative Findings: patent right basilic vein. catheter length: 36 cm. catheter tip: cavoatrial junction Post-Operative Diagnosis: same Operation Performed: RUE PICC Insertion Specimen/Specimens Removed: n/a Estimated Blood Loss: EBL {In ML}: 0 Date of Surgery/Procedure: 08/29/17 Time of Surgery/Procedure: 14:10
--- NOTE | 2017-08-29 14:47 | VASCULAR ---
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 COMPARISON: None. PROCEDURE: 1. Focused ultrasound of the right upper extremity vasculature. 2. Ultrasound-guided access. 3. Insertion of peripherally inserted central venous catheter. 4. Fluoroscopic localization of catheter tip. PRE-PROCEDURE FINDINGS: 1. Patent right basilic vein. POST-PROCEDURE FINDINGS: 1. Placement of 4 [place] single-lumen PICC. 2. Catheter length: 36 cm. 3. Catheter tip at cavoatrial junction. INTERVENTIONAL RADIOLOGIST: Kiet Tolentino M.D. (the attending was present for the entire procedure) ANESTHESIA: None. MEDICATION: Lidocaine 1% for local subcutaneous analgesia. COMPLICATIONS: None. RADIATION DOSE: Fluoroscopy Time: 7.9 seconds Cumulative Dose: 1.24 mGy PROCEDURE DESCRIPTION AND FINDINGS: The risks, benefits, alternatives and possible complications of the procedure were fully discussed; all questions were answered and informed consent was obtained. The patient was brought into the interventional suite and a pre-procedure 'time-out' was performed. The patient was placed on the fluoroscopy table in the supine position. The right upper extremity was prepped and draped in the usual sterile fashion. Maximum sterile barrier precautions were maintained throughout the entire procedure. Preliminary ultrasound images of the right upper extremity vasculature demonstrate patency of the right basilic vein. Following subcutaneous infiltration of 1% lidocaine for local analgesia, under ultrasound guidance, a 21-gauge needle was advanced into the right basilic vein with real-time visualization of needle entry. The ultrasound images were permanently recorded and submitted to the PACS. A 0.018 guidewire was advanced centrally to the cavoatrial junction. A 4.5 [place] peel-away sheath was advanced over the guidewire. After obtaining length measurement, a 4 [place] single-lumen PICC was placed with the tip of the catheter at the cavoatrial junction. The total length of the catheter is 36 cm. The hub of the PICC was secured to the skin using a sterile adhesive bandage. The patient tolerated the procedure well without immediate post-procedure complications and was transferred back to the floor in stable condition. IMPRESSION: SUCCESSFUL INSERTION OF RIGHT UPPER EXTREMITY PICC. PICC OK TO USE.
[2017-08-29] MEDS: Lactobacillus Acidophilus 500 MU Cap PO SCH (17:21)
[2017-08-30] MEDS: Levothyroxine 25 MCG TAB PO SCH (07:41)
[2017-08-30 08:10] VITALS: O2SAT 97
--- NOTE | 2017-08-30 08:40 | CP.PCM.PN ---
Subjective - Date & Time of Evaluation Date of Evaluation: 08/30/17 Time of Evaluation: 08:40 - Subjective Subjective: Patient seen and examined at bedside comfortable. He has been able to get up OOB ambulating without difficulties. Tolerating diet well. No new complaints. Objective - Vital Signs/Intake and Output Vital Signs (last 24 hours): Temp Pulse Resp BP Pulse Ox 98.4 F 62 20 154/87 H 97 08/30/17 08:09 08/30/17 08:09 08/30/17 08:09 08/30/17 08:09 08/30/17 08:09 - Medications Medications: Current Medications Amlodipine Besylate (Norvasc) 10 mg PO DAILY [facility] Last Admin: 08/29/17 09:14 Dose: 10 mg Atorvastatin Calcium (Lipitor) 20 mg PO HS [facility] Last Admin: 08/29/17 21:08 Dose: 20 mg Carvedilol (Coreg) 12.5 mg PO BID [facility] Last Admin: 08/29/17 17:15 Dose: 12.5 mg Doxazosin Mesylate (Cardura) 4 mg PO BID [facility] Last Admin: 08/29/17 17:15 Dose: 4 mg Ergocalciferol (Drisdol 50,000 Intl Units Cap) 1 cap PO MO [facility] Last Admin: 08/27/17 23:39 Dose: Not Given Home Med (Vortioxetine Hydrobromide [Trintellix]) 20 mg PO DAILY [facility] Hydrochlorothiazide (Microzide) 12.5 mg PO DAILY [facility] Last Admin: 08/29/17 09:14 Dose: 12.5 mg Hydromorphone HCl (Dilaudid) 2 mg IVP Q8 PRN PRN Reason: Pain, moderate (4-7) Vancomycin HCl 1 gm/ Sodium (Chloride) 250 mls @ 166.667 mls/hr IVPB Q12 [facility] PRN Reason: Protocol Last Admin: 08/29/17 21:08 Dose: 166.667 mls/hr Ceftriaxone Sodium 2 gm/ (Sodium Chloride) 100 mls @ 100 mls/hr IVPB DAILY [facility] PRN Reason: Protocol Last Admin: 08/29/17 09:16 Dose: 100 mls/hr Lactobacillus Acidophilus (Bacid Acidophilus) 1 cap PO BID [facility] Last Admin: 08/29/17 17:21 Dose: 1 cap Levothyroxine Sodium (Synthroid) 25 mcg PO DAILY@0630 [facility] Last Admin: 08/30/17 07:41 Dose: 25 mcg Valsartan (Diovan) 320 mg PO DAILY [facility] Last Admin: 08/29/17 09:13 Dose: 320 mg - Labs Labs: 08/29/17 05:50 08/29/17 05:50 PT 11.5 Seconds (9.8-13.1) 08/27/17 14:27 INR 1.0 (0.9-1.2) 08/27/17 14:27 APTT 30.1 Seconds (25.6-37.1) 08/27/17 14:27 - Constitutional Appears: No Acute Distress - ENT Exam ENT Exam: Mucous Membranes Moist - Back Exam Back Exam: Full ROM. absent: vertebral tenderness Additional comments: No tenderness, no erythema, dressings with mild serous drainage, packing removed with moderate serous drainage, sensation grossly intact - Neurological Exam Neurological Exam: Alert, Awake, Oriented x3 Neuro motor strength exam: Left Lower Extremity: 5, Right Lower Extremity: 5 - Skin Skin Exam: Normal Color Assessment and Plan (1) Wound dehiscence, surgical Assessment & Plan: -Continue abx as per ID, PICC inserted yesterday -Continue packing and dressing changes Q12 -D/c planning -will d/w dr. Bowens Status: Acute
[2017-08-30] MEDS: cefTRIAXone 2 GM in Sodium Chloride 0.9% 100 ML IVPB SCH (10:37)
[2017-08-30] MEDS: Lactobacillus Acidophilus 500 MU Cap PO SCH ×2 (10:37→16:55)
[2017-08-30] MEDS ORDERED: DAPTOmycin 500 MG in Sodium Chloride 0.9% 100 ML IVPB SCH (11:15)
--- NOTE | 2017-08-30 14:28 | CP.PCM.PCO ---
Assessment & Plan - Assessment and Plan (Free Text) Assessment: pt. doing well, denies sob, cp, fever, chills n/v/d pt. cleared for d/c to home today by , and cont. Daptomycin 500 mg iv daily and Rocephin 2 gm iv daily x 6 weeks total as per pt. will need vns assistance to teach family with wound care packing. pt. has 3 flights of steps to negotiate and will have difficulty with outpatient care f/u with and outpatient
[2017-08-30 16:13] VITALS: BP 133/77; PULSE 70; RESP 18; TEMP 98.2
--- NOTE | 2017-09-12 19:09 | PROCN ---
PROCEDURE DATE: 08/29/2017 BEDSIDE PROCEDURE The patient had a lumbar laminectomy, had a wound collection. At the bedside after prepping and draping the area, one stitch has been removed and the subcutaneously collected serous fluid has been expressed and there was no obvious infection noted and then wound was packed with new gauze and sterile dressing has been applied. This is a bedside procedure of wound treatment. Ramana Bowens MD
== END 2017-08-30 18:24 | disposition home or self-care (01) | DRG 920 ==
LOC: H.ER 13:08 → H.ERHOLD 15:35 → H.MEDSURG1 21:58
PROVIDERS: ADMIT Family Medicine; ATTEND Family Medicine
PROC: 02HV33Z Insertion of Infusion Device into Superior Vena Cava, Percutaneous Approach (ICD-10-PCS; principal; 2017-08-29)
PROC: 0W9L3ZZ Drainage of Lower Back, Percutaneous Approach (ICD-10-PCS; 2017-08-29)
DX: L76.34 Postprocedural seroma of skin and subcutaneous tissue following other procedure (principal); T81.31XA Disruption of external operation (surgical) wound, not elsewhere classified, initial encounter; E11.22 Type 2 diabetes mellitus with diabetic chronic kidney disease; E78.5 Hyperlipidemia, unspecified; I12.9 Hypertensive chronic kidney disease with stage 1 through stage 4 chronic kidney disease, or unspecified chronic kidney disease; N18.9 Chronic kidney disease, unspecified; E03.9 Hypothyroidism, unspecified; M19.90 Unspecified osteoarthritis, unspecified site; E78.00 Pure hypercholesterolemia, unspecified; K29.70 Gastritis, unspecified, without bleeding; F41.9 Anxiety disorder, unspecified; F32.9 Major depressive disorder, single episode, unspecified; F17.210 Nicotine dependence, cigarettes, uncomplicated; Y83.8 Other surgical procedures as the cause of abnormal reaction of the patient, or of later complication, without mention of misadventure at the time of the procedure